=== PATIENT | male | born 1945 | race Caucasian/White ===

== ENCOUNTER 2016-07-31 10:43 | Inpatient (IN) | payer MEDICARE, OTHER ==
[2016-07-31] VITALS (8 sets, daily range): BP systolic 99–142; BP diastolic 57–79; PULSE 42–78; RESP 14–19; TEMP 97.8–98.1; O2SAT 94–99
[~2016-07-31] VITALS: Ht 172.7 cm; Wt 76.0 kg
[~2016-07-31 10:43] MED LIST: AMLO5 PO; BUSP10 PO; CARB25TA PO; DIVA250ER PO; LISI20 PO; OXYB5TAB PO; PANT20 PO; PROS5TAB2 PO; SERO100T PO; TRAZ100 PO
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
[2016-07-31] MEDS ORDERED: SODIUM CHLORIDE 0.9% FLUSH 5 ML FLUSH IVF PRN (11:00)
[2016-07-31 11:17] LABS: AUTOMATED NEUTROPHIL # 4.1 TH/MM3 (1.8-7.7); BASOPHIL # 0.1 TH/MM3 (0-0.2); BASOPHIL % 0.8 % (0.0-2.0); EOSINOPHIL # 0.2 TH/MM3 (0-0.4); EOSINOPHIL % 1.8 % (0.0-4.0); HEMATOCRIT 40.4 % (39.0-51.0); HEMO FLAGS DIFF FINAL; LYMPH % 46.9 % (9.0-44.0); LYMPHOCYTE # 4.6 TH/MM3 (1.0-4.8); MEAN CORPUSCULAR HEMOGLOBIN 29.8 PG (27.0-34.0); MEAN CORPUSCULAR HGB CONC 33.5 % (32.0-36.0); MONO % 8.1 % (0.0-8.0); NEUT % 42.4 % (16.0-70.0); PLATELET COUNT 225 TH/MM3 (150-450); RED BLOOD COUNT 4.54 MIL/MM3 (4.50-5.90); RED CELL DISTRIBUTION WIDTH 13.5 % (11.6-17.2); WHITE BLOOD COUNT 9.8 TH/MM3 (4.0-11.0)
[2016-07-31 11:27] LABS: APTT (PATIENT) 24.3 SEC (24.3-30.1); PROTHROMBIN TIME - PATIENT 10.5 SEC (9.8-11.6)
--- NOTE | 2016-07-31 11:28 | RADRPT ---
EXAM DATE/TIME: 07/31/2016 10:47 [facility] COMPARISON: CHEST SINGLE AP, July 17, 2013, 15:05. INDICATIONS : Short of breath. MEDICAL HISTORY : None. SURGICAL HISTORY : None. ENCOUNTER: Initial ACUITY: 1 day PAIN SCORE: 2/10 LOCATION: Bilateral chest FINDINGS: A single view of the chest demonstrates the lungs to be symmetrically aerated without evidence of mas s, infiltrate or effusion. The cardiomediastinal contours are unremarkable. Osseous structures are intact. CONCLUSION: No acute disease. Elliot Bhagat MD FACR on July 31, 2016 at 11:27 Board Certified Radiologist. This report was verified electronically.
[2016-07-31 11:32] LABS: ALT (GPT) 11 U/L (12-78); ANION GAP 8 MEQ/L (5-15); AST (GOT) 7 U/L (15-37); BICARBONATE 26.2 MEQ/L (21.0-32.0); BLOOD UREA NITROGEN 8 MG/DL (7-18); CHLORIDE 107 MEQ/L (98-107); GLOMERULAR FILTRATION RATE 78 ML/MIN (>89); POTASSIUM 3.8 MEQ/L (3.5-5.1); SODIUM (NA) 141 MEQ/L (136-145)
[2016-07-31 11:36] LABS: ALKALINE PHOSPHATASE 44 U/L (45-117); TOTAL BILIRUBIN ADULT 0.5 MG/DL (0.2-1.0)
[2016-07-31] MEDS ORDERED: TRAZ50TA12 PO (11:40)
[2016-07-31] MEDS ORDERED: BENZ0.5T PO (11:40)
[2016-07-31] MEDS ORDERED: MEMA28CA PO (11:40)
[2016-07-31] MEDS ORDERED: AMLO5TAB2 PO (11:40)
[2016-07-31] MEDS ORDERED: QUET300XR PO (11:40)
[2016-07-31] MEDS ORDERED: LISI-515 PO (11:40)
[2016-07-31] MEDS ORDERED: MAPA325T PO (11:43)
[2016-07-31] MEDS ORDERED: SINE25TA PO (11:43)
--- NOTE | 2016-07-31 11:46 | RADRPT ---
EXAM DATE/TIME: 07/31/2016 11:13 [facility] COMPARISON: CT BRAIN W/O CONTRAST, July 05, 2012, 12:25. INDICATIONS: Altered mental status. RADIATION DOSE: 39.88 CTDIvol (mGy) MEDICAL HISTORY: Dementia. Seizures. Cerebrovascular disease. Hypertension. SURGICAL HISTORY: None. ENCOUNTER: Initial ACUITY: 1 day PAIN SCALE: Non-responsive LOCATION: Cranial TECHNIQUE: Multiple contiguous axial images were obtained of the head. Using automated exposure control and adj ustment of the mA and/or kV according to patient size, radiation dose was kept as low as reasonably a chievable to obtain optimal diagnostic quality images. 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 A second old infarct is seen in the rig ht parietal occipital region. Moderate periventricular white matter changes are noted. There is no parenchymal hemorrhage . I see no definite acute infarction. There are no extraaxial fluid collections appreciated. CONCLUSION: Significant ischemic changes, negative for an acute process. Elliot Bhagat MD FACR on July 31, 2016 at 11:34 Board Certified Radiologist. This report was verified electronically.
[2016-07-31] MEDS ORDERED: OXYB5TAB PO (11:47)
[2016-07-31] MEDS ORDERED: FLEE5TAB PO (11:47)
[2016-07-31] MEDS ORDERED: DIVA250ER PO (11:47)
[2016-07-31] MEDS ORDERED: DEPA500T3 PO (11:47)
[2016-07-31] MEDS ORDERED: OMEP20CA2 PO (11:50)
[2016-07-31] MEDS ORDERED: PROS5TAB PO (11:50)
[2016-07-31] MEDS ORDERED: ATOR10TA15 PO (11:50)
[2016-07-31 12:06] LABS: BLOOD, URINE NEG (NEG); GLUCOSE,URINE NEG (NEG); KETONE, URINE NEG (NEG); NITRITE,URINE NEG (NEG); URINE COLOR LIGHT-YELLOW (YELLW/STRAW)
[2016-07-31 12:11] LABS: COMMENT (UR) CATH-CULT NOT IND; CULTURE IF INDICATED CATH CULTURE NOT IND
[2016-07-31] MEDS ORDERED: BISACODYL EC 5 MG TABEC PO PRN (13:30)
[2016-07-31] MEDS ORDERED: PILL SPLITTER OTHER PRN (14:00)
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
[2016-07-31] MEDS: SODIUM CHLOR 0.9% 1000 ML INJ 1,000 ML IV SCH (15:14)
[2016-07-31 16:02] LABS: AMPHETAMINE, URINE NEG (NEG); BARBITURATES, URINE NEG (NEG); COCAINE, URINE NEG (NEG)
[2016-07-31] MEDS: CARBIDOPA/LEVODOPA 25 MG/100 MG TAB PO SCH ×2 (18:00→23:34)
--- NOTE | 2016-07-31 19:02 | HHI.PR ---
Objective Objective Results - Vital Signs Date Time Temp Pulse Resp B/P Pulse Ox O2 Delivery O2 Flow Rate FiO2 07/31/16 18:50 98.1 50 18 140/79 98 07/31/16 17:47 55 14 142/77 96 07/31/16 14:57 49 14 112/70 99 Nasal Cannula 2 07/31/16 12:52 94 Nasal Cannula 2 07/31/16 12:17 57 14 99/57 94 07/31/16 10:52 98.1 63 19 137/77 94 Result Diagram: 07/31/16 1100 07/31/16 1100 Imaging Last Impressions Chest X-Ray 07/31/16 1047 Signed Impressions: Service Date/Time: Sunday, July 31, 2016 10:47 - CONCLUSION: No acute disease. Elliot Bhagat MD FACR Other Results Laboratory Tests Test 07/31/16 07/31/16 07/31/16 07/31/16 11:00 11:30 11:35 15:15 White Blood Count 9.8 Red Blood Count 4.54 Hemoglobin 13.6 Hematocrit 40.4 Mean Corpuscular Volume 89.0 Mean Corpuscular Hemoglobin 29.8 Mean Corpuscular Hemoglobin 33.5 Concent Red Cell Distribution Width 13.5 Platelet Count 225 Mean Platelet Volume 9.6 Neutrophils (%) (Auto) 42.4 Lymphocytes (%) (Auto) 46.9 Monocytes (%) (Auto) 8.1 Eosinophils (%) (Auto) 1.8 Basophils (%) (Auto) 0.8 Neutrophils # (Auto) 4.1 Lymphocytes # (Auto) 4.6 Monocytes # (Auto) 0.8 Eosinophils # (Auto) 0.2 Basophils # (Auto) 0.1 CBC Comment DIFF FINAL Differential Comment Prothrombin Time 10.5 Prothromb Time International 1.0 Ratio Activated Partial 24.3 Thromboplast Time Sodium Level 141 Potassium Level 3.8 Chloride Level 107 Carbon Dioxide Level 26.2 Anion Gap 8 Blood Urea Nitrogen 8 Creatinine 0.96 Estimat Glomerular Filtration 78 Rate Random Glucose 89 Calcium Level 8.1 Total Bilirubin 0.5 Aspartate Amino Transf 7 (AST/SGOT) Alanine Aminotransferase 11 (ALT/SGPT) Alkaline Phosphatase 44 Troponin I LESS THAN 0.02 LESS THAN 0.02 Total Protein 6.4 Albumin 3.2 Vitamin B12 Level 261 Valproic Acid (Depakene) Level 29 Ammonia 24 Urine Color LIGHT-YELLOW Urine Turbidity CLEAR Urine pH 6.0 Urine Specific [place] 1.002 Urine Protein NEG Urine Glucose (UA) NEG Urine Ketones NEG Urine Occult Blood NEG Urine Nitrite NEG Urine Bilirubin NEG Urine Urobilinogen LESS THAN 2.0 Urine Leukocyte Esterase NEG Microscopic Urinalysis Comment CATH-CULT NOT IND Urine Opiates Screen NEG Urine Barbiturates Screen NEG Urine Amphetamines Screen NEG Urine Benzodiazepines Screen NEG Urine Cocaine Screen NEG Urine Cannabinoids Screen NEG Thyroid Stimulating Hormone 2.730 3rd Gen Physical Exam Physical Exam pt is seen & Examined d/w PT d/w RN d/w Mervat see Orders see H&P will f/u Jocelyne Jerez MD Jul 31, 2016 19:02
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
[2016-07-31] MEDS: QUEtiapine FUMARATE 100 MG TAB PO SCH (23:31)
[2016-07-31] MEDS: DIVALPROEX SODIUM E.R. 250 MG TAB PO SCH (23:33)
[2016-07-31] MEDS: traZODone HCL 50 MG TAB PO SCH (23:33)
[2016-07-31] MEDS: ATORVASTATIN 10 MG TAB PO SCH (23:33)
[2016-07-31] MEDS: DIVALPROEX SODIUM E.R. 500 MG TAB PO SCH (23:33)
[2016-07-31] MEDS: LISINOPRIL 20 MG TAB PO SCH (23:34)
[2016-07-31] MEDS: BENZTROPINE MESYLATE 1 MG TAB PO SCH (23:44)
[2016-08-01] VITALS (11 sets, daily range): BP systolic 79–151; BP diastolic 53–88; PULSE 67–117; RESP 15–18; TEMP 98–99.3; O2SAT 96–99
--- NOTE | 2016-08-01 00:38 | RADRPT ---
EXAM DATE/TIME: 07/31/2016 21:14 [facility] COMPARISON: No previous studies available for comparison. INDICATIONS : Transient ischemic attack. MEDICAL HISTORY : Hypertension. Seizures. Head trauma. Asthma. Dyspnea. Schizophrenia. Bipolar disorder. Anxiety. SURGICAL HISTORY : Brain surgery. Cataract surgery. Blood transfusions. ENCOUNTER: Initial ACUITY: 1 day PAIN SCORE: 0/10 LOCATION: Bilateral neck PEAK SYSTOLIC VELOCITIES (cm/sec): ICA/CCA RATIO: Right: 0.6 Left: 1.0 ICA: Right: 55 Left: 78 CCA: Right: 86 Left: 75 ECA: Right: 78 Left: 60 VERTEBRAL: Right: 33 antegrade Left: 44 antegrade Elevated flow velocities and ICA/CCA ratios have been found to correlate with increased degrees of vessel stenosis, calculated as percentage of diameter relative to a normal segment of distal ICA/CCA FINDINGS: RIGHT CAROTID: No significant stenosis is visualized. The waveforms are within normal limits. LEFT CAROTID: No significant stenosis is visualized. The waveforms are within normal limits. VERTEBRAL ARTERIES: Antegrade flow is seen in both vertebral arteries. MISCELLANEOUS: None. CONCLUSION: No evidence of flow-limiting carotid stenosis. Osmar Welch MD on August 01, 2016 at 0:36 Board Certified Radiologist. This report was verified electronically.
[2016-08-01] MEDS: SODIUM CHLOR 0.9% 1000 ML INJ 1,000 ML IV SCH ×2 (03:19→14:35)
--- NOTE | 2016-08-01 08:42 | HHI.PR ---
Subjective History of Present Illness feels well No CP or SOB No cough or sputum No fever or chills No N/V NO headache ambulated w PT in good spirits offers no other c/o Vitals/Results Intake & Output 07/31/16 07/31/16 08/01/16 15:00 23:00 07:00 Output Total 1200 ml Balance -1200 ml Output Urine Total 1200 ml Vital Signs Vital Signs Date Time Temp Pulse Resp B/P Pulse Ox O2 Delivery O2 Flow Rate FiO2 08/01/16 06:17 78 08/01/16 05:31 98.0 72 18 133/62 98 08/01/16 01:37 98.2 67 18 118/68 97 07/31/16 21:05 97.8 42 18 110/57 98 07/31/16 20:00 98.0 78 18 137/72 97 07/31/16 18:50 98.1 50 18 140/79 98 07/31/16 17:47 55 14 142/77 96 07/31/16 14:57 49 14 112/70 99 Nasal Cannula 2 07/31/16 12:52 94 Nasal Cannula 2 07/31/16 12:17 57 14 99/57 94 07/31/16 10:52 98.1 63 19 137/77 94 CBC/BMP: 07/31/16 1100 07/31/16 1100 Lab Results Laboratory Tests Test 07/31/16 07/31/16 07/31/16 07/31/16 11:00 11:30 11:35 15:15 White Blood Count 9.8 TH/MM3 Red Blood Count 4.54 MIL/MM3 Hemoglobin 13.6 GM/DL Hematocrit 40.4 % Mean Corpuscular Volume 89.0 FL Mean Corpuscular Hemoglobin 29.8 PG Mean Corpuscular Hemoglobin 33.5 % Concent Red Cell Distribution Width 13.5 % Platelet Count 225 TH/MM3 Mean Platelet Volume 9.6 FL Neutrophils (%) (Auto) 42.4 % Lymphocytes (%) (Auto) 46.9 % Monocytes (%) (Auto) 8.1 % Eosinophils (%) (Auto) 1.8 % Basophils (%) (Auto) 0.8 % Neutrophils # (Auto) 4.1 TH/MM3 Lymphocytes # (Auto) 4.6 TH/MM3 Monocytes # (Auto) 0.8 TH/MM3 Eosinophils # (Auto) 0.2 TH/MM3 Basophils # (Auto) 0.1 TH/MM3 CBC Comment DIFF FINAL Differential Comment Prothrombin Time 10.5 SEC Prothromb Time International 1.0 RATIO Ratio Activated Partial 24.3 SEC Thromboplast Time Sodium Level 141 MEQ/L Potassium Level 3.8 MEQ/L Chloride Level 107 MEQ/L Carbon Dioxide Level 26.2 MEQ/L Anion Gap 8 MEQ/L Blood Urea Nitrogen 8 MG/DL Creatinine 0.96 MG/DL Estimat Glomerular Filtration 78 ML/MIN Rate Random Glucose 89 MG/DL Calcium Level 8.1 MG/DL Total Bilirubin 0.5 MG/DL Aspartate Amino Transf 7 U/L (AST/SGOT) Alanine Aminotransferase 11 U/L (ALT/SGPT) Alkaline Phosphatase 44 U/L Troponin I LESS THAN 0.02 LESS THAN 0.02 NG/ML NG/ML Total Protein 6.4 GM/DL Albumin 3.2 GM/DL Vitamin B12 Level 261 PG/ML Valproic Acid (Depakene) Level 29 MCG/ML Ammonia 24 MCMOL/L Urine Color LIGHT-YELLOW Urine Turbidity CLEAR Urine pH 6.0 Urine Specific [place] 1.002 Urine Protein NEG mg/dL Urine Glucose (UA) NEG mg/dL Urine Ketones NEG mg/dL Urine Occult Blood NEG Urine Nitrite NEG Urine Bilirubin NEG Urine Urobilinogen LESS THAN 2.0 MG/DL Urine Leukocyte Esterase NEG Microscopic Urinalysis Comment CATH-CULT NOT IND Urine Opiates Screen NEG Urine Barbiturates Screen NEG Urine Amphetamines Screen NEG Urine Benzodiazepines Screen NEG Urine Cocaine Screen NEG Urine Cannabinoids Screen NEG Thyroid Stimulating Hormone 2.730 uIU/ML 3rd Gen Physical Exam General General Appearance: No Acute Distress, Comfortable Eyes Eye Exam: Pupils Equal, Sclera White Ears & Nose Ears & Nose Exam: Nasal Mucosa [place] Throat Throat Exam: Oral Mucosa [place] & Moist Neck Neck Exam: Neck Supple, Trachea Midline Pulmonary Resp Exam: Clear Bilaterally, Breath Sounds Equal, No Distress Cardiology CV Exam: Regular, Normal Sinus Rhythm Gastrointestinal/Abdomen GI Exam: Soft, Non-Tender, Bowel Sounds Present Integumentary Skin Exam: Warm, Dry Extremeties Extremities Exam: No Edema, Pedal Pulses Palpable Neurologic Neuro Exam: Alert, Awake, Oriented, Speech Clear, Moving All Extremities Neuro Remarks Resting tremors pierre involving upper ext Psychiatric Psych Exam: Appropriate Responses PUD Prophylasis PUD Prophylaxis: Protonix Assessment/Plan Assessment/Plan Assessment and Plan Problem List: (1) S/P Altered mental status SYNCOPE VS SEIZURE (2) Bradycardia, apparently Sinus Bradycardia , improved (3) Parkinsonism (4) Schizophrenia (5) Hypertension (6) Dementia following traumatic brain injury (7) Seizure disorder (8) History of CVA (cerebrovascular accident) Assessment and Plan 71-year-old male with history of schizophrenia, Parkinson's, dementia, seizure disorder. Brought in for altered mental status, was found bradycardic given Atropine by EVAC . -Patient was put on continuous cardiac telemetry, bradycardia resolved -Start IV fluids, normal saline at 84 an hour -cardiology consult awaited -Echo [p] -TSH Normal - trop Neg ? Hx Seizure disorder Neuro checks Seizure precautions EEG neg for sz spikes -Continue depakote CT finding of old strokes -Echo ordered -ASA 82 mg po daily - cont statin -lipid profile not done -Carotid US -TSH, B12 low normal -PT/ST Parkinson's -Resume home meds/ sinemet History of schizoaffective disorder Continue home meds, seroquel/cogentin Dementia -Continue to monitor, resume home medications Hypertension, stable Continue home medications, CCB/MAX-I Home medications reviewed, initiated as indicated SCDs for DVT prophylaxis ss for d.c planning , d/c back to NH facility if/when ok w card d/w RN d/w SW JAIL form completed see MRS total time spent > 38 min Jocelyne Jerez MD Aug 01, 2016 08:42
[2016-08-01] MEDS: MEMANTINE 28 MG PO SCH (09:00)
[2016-08-01] MEDS ORDERED: ASPI81TA11 PO (09:54)
[2016-08-01] MEDS: FINASTERIDE 5 MG TAB PO SCH (10:11)
[2016-08-01] MEDS: BENZTROPINE MESYLATE 1 MG TAB PO SCH ×2 (10:12→21:31)
[2016-08-01] MEDS: ASPIRIN EC 81 MG TABEC PO SCH (10:12)
[2016-08-01] MEDS: CARBIDOPA/LEVODOPA 25 MG/100 MG TAB PO SCH ×4 (10:12→21:32)
[2016-08-01] MEDS: amLODIPine BESYLATE 5 MG TAB PO SCH (10:12)
[2016-08-01] MEDS: QUEtiapine FUMARATE 100 MG TAB PO SCH ×2 (10:12→21:29)
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
[2016-08-01] MEDS ORDERED: SODIUM CHLORID 0.9% 500 ML INJ 500 ML IV ONE (13:30)
[2016-08-01 14:04] LABS: AUTOMATED NEUTROPHIL # 10.1 TH/MM3 (1.8-7.7); BASOPHIL # 0.1 TH/MM3 (0-0.2); BASOPHIL % 0.7 % (0.0-2.0); EOSINOPHIL # 0.1 TH/MM3 (0-0.4); EOSINOPHIL % 0.9 % (0.0-4.0); HEMATOCRIT 37.8 % (39.0-51.0); HEMO FLAGS DIFF FINAL; LYMPH % 17.1 % (9.0-44.0); LYMPHOCYTE # 2.3 TH/MM3 (1.0-4.8); MEAN CELL VOLUME 87.5 FL (80.0-100.0); MEAN CORPUSCULAR HEMOGLOBIN 29.4 PG (27.0-34.0); MEAN CORPUSCULAR HGB CONC 33.6 % (32.0-36.0); MONO % 7.8 % (0.0-8.0); NEUT % 73.5 % (16.0-70.0); PLATELET COUNT 185 TH/MM3 (150-450); RED BLOOD COUNT 4.32 MIL/MM3 (4.50-5.90); RED CELL DISTRIBUTION WIDTH 13.2 % (11.6-17.2); WHITE BLOOD COUNT 13.7 TH/MM3 (4.0-11.0)
--- NOTE | 2016-08-01 16:33 | EC ---
Study Study Date:08/01/2016 STUDY CONCLUSIONS SUMMARY - Procedure narrative: Image quality was fair. The study was technically limited due to poor acoustic window availability. - Left ventricle: Systolic function was probably normal. Views of the left ventricle are limited, but overall the ejection fraction is most likely 55-60% If LV function is below 40, please consider prescribing an ACEI or ARB or document rationale for non-use. PROCEDURE DATA STUDY STATUS: Elective. Procedure: Transthoracic echocardiography. Image quality was fair. The study was technically limited due to poor acoustic window availability. Scanning was performed from the parasternal and apical acoustic windows. Study completion: The patient tolerated the procedure well. Transthoracic echocardiography. M-mode, complete 2D, complete spectral Doppler, and color Doppler. Patient status: Inpatient. CARDIAC ANATOMY LEFT VENTRICLE: Systolic function was probably normal. Views of the left ventricle are limited, but overall the ejection fraction is most likely 55-60% Images were inadequate for LV wall motion assessment. AORTIC VALVE: The valve appears to be grossly normal. Doppler: There was no stenosis. No significant regurgitation. MITRAL VALVE: The valve appears to be grossly normal. Normal thickness leaflets, . Doppler: There was no evidence for stenosis. Trace regurgitation. Peak gradient: 3mm Hg (D). LEFT ATRIUM: The atrium was normal in size. PULMONIC VALVE: Not well visualized. TRICUSPID VALVE: The valve appears to be grossly normal. Doppler: There was no evidence for stenosis. Trace regurgitation. BASIC MEASUREMENTS ADULT Normal Left ventricle LV internal dimension, ED, chordal level, *35.6 mm 43-52 PLAX LV posterior wall thickness, ED 6.44 mm IVS/LVPW ratio, ED *1.3 <1.3 Ventricular septum Septal thickness, ED 8.37 mm Aortic valve Leaflet separation 23 mm 15-26 Left atrium Anterior-posterior dimension 33 mm Right ventricle RV internal dimension, ED, PLAX 25.6 mm 19-38 BASIC MEASUREMENTS ADULT Normal Aortic valve Leaflet separation 23 mm 15-26 Aorta Root diameter, ED 34 mm 20-37 DOPPLER MEASUREMENTS ADULT Normal Mitral valve Peak E-wave velocity 89.3 cm/s Peak A-wave velocity 41 cm/s Peak gradient, D 3 mm Hg Peak E/A ratio 2.2 Tricuspid valve Regurgitant peak velocity 130 cm/s Peak RV-RA gradient, S 7 mm Hg Maximal regurgitant velocity 130 cm/s LEGEND: Mean values are shown as u=mean value. Asterisk (*) kruse values outside specified normal range. Prepared and signed by Olegario Keith [id number]
--- NOTE | 2016-08-01 21:25 | EKG ---
Date Performed: 07/31/2016 Time Performed: 11:55:36 PTAGE: 71 years EKG: SINUS BRADYCARDIA BORDERLINE ECG PREVIOUS TRACING : 07/17/2013 15.12 DOCTOR: Fabrice Aquino Interpretating Date/Time 08/01/2016 21:12:36
[2016-08-01] MEDS: traZODone HCL 50 MG TAB PO SCH (21:29)
[2016-08-01] MEDS: DIVALPROEX SODIUM E.R. 250 MG TAB PO SCH (21:31)
[2016-08-01] MEDS: DIVALPROEX SODIUM E.R. 500 MG TAB PO SCH (21:31)
[2016-08-01] MEDS: LISINOPRIL 20 MG TAB PO SCH (21:32)
[2016-08-01] MEDS: ATORVASTATIN 10 MG TAB PO SCH (21:32)
[2016-08-02] VITALS (7 sets, daily range): BP systolic 108–132; BP diastolic 59–73; PULSE 74–98; RESP 17–21; TEMP 98–100.8; O2SAT 94–97
[2016-08-02] MEDS: SODIUM CHLOR 0.9% 1000 ML INJ 1,000 ML IV SCH ×3 (02:30→22:17)
[2016-08-02] MEDS: MEMANTINE 28 MG PO SCH (09:00)
[2016-08-02] MEDS: ASPIRIN EC 81 MG TABEC PO SCH (09:59)
[2016-08-02] MEDS: amLODIPine BESYLATE 5 MG TAB PO SCH (09:59)
[2016-08-02] MEDS: QUEtiapine FUMARATE 100 MG TAB PO SCH ×2 (09:59→22:16)
[2016-08-02] MEDS: BENZTROPINE MESYLATE 1 MG TAB PO SCH ×2 (09:59→22:14)
[2016-08-02] MEDS: CARBIDOPA/LEVODOPA 25 MG/100 MG TAB PO SCH ×4 (10:00→22:15)
[2016-08-02] MEDS: FINASTERIDE 5 MG TAB PO SCH (10:00)
--- NOTE | 2016-08-02 10:01 | HHI.PR ---
Subjective History of Present Illness pt became hypotensive yesterday , treated w fluid bolus BP improved , d/c withheld had low grade temp earlier today , BP is better I am OK No cough or sputum No sore throat No N/V NO headache No body ache NO dysuria No Diarrhea ambulated w PT in good spirits offers no other c/o Vitals/Results Vital Signs Vital Signs Date Time Temp Pulse Resp B/P Pulse Ox O2 Delivery O2 Flow Rate FiO2 08/02/16 08:00 100.8 98 18 112/65 94 08/02/16 04:00 98.2 74 18 132/68 97 08/02/16 00:31 98.0 87 21 121/73 97 08/01/16 21:15 105 08/01/16 20:13 98.0 87 18 142/87 97 08/01/16 15:55 99.3 117 18 150/78 98 08/01/16 13:50 114/73 08/01/16 13:30 102/68 08/01/16 13:20 78 79/53 87/60 08/01/16 12:00 98.1 98 15 99 CBC/BMP: 08/01/16 1330 07/31/16 1100 Lab Results Laboratory Tests Test 08/01/16 08/01/16 13:30 14:11 White Blood Count 13.7 TH/MM3 Red Blood Count 4.32 MIL/MM3 Hemoglobin 12.7 GM/DL Hematocrit 37.8 % Mean Corpuscular Volume 87.5 FL Mean Corpuscular Hemoglobin 29.4 PG Mean Corpuscular Hemoglobin 33.6 % Concent Red Cell Distribution Width 13.2 % Platelet Count 185 TH/MM3 Mean Platelet Volume 10.0 FL Neutrophils (%) (Auto) 73.5 % Lymphocytes (%) (Auto) 17.1 % Monocytes (%) (Auto) 7.8 % Eosinophils (%) (Auto) 0.9 % Basophils (%) (Auto) 0.7 % Neutrophils # (Auto) 10.1 TH/MM3 Lymphocytes # (Auto) 2.3 TH/MM3 Monocytes # (Auto) 1.1 TH/MM3 Eosinophils # (Auto) 0.1 TH/MM3 Basophils # (Auto) 0.1 TH/MM3 CBC Comment DIFF FINAL Differential Comment Random Cortisol 11.4 MCG/DL Physical Exam General General Appearance: No Acute Distress, Comfortable Eyes Eye Exam: Pupils Equal, Sclera White Ears & Nose Ears & Nose Exam: Nasal Mucosa [place] Throat Throat Exam: Oral Mucosa [place] & Moist Neck Neck Exam: Neck Supple, Trachea Midline Pulmonary Resp Exam: Clear Bilaterally, Breath Sounds Equal, No Distress Cardiology CV Exam: Regular, Normal Sinus Rhythm Gastrointestinal/Abdomen GI Exam: Soft, Non-Tender, Bowel Sounds Present Integumentary Skin Exam: Warm, Dry Extremeties Extremities Exam: No Edema, Pedal Pulses Palpable Neurologic Neuro Exam: Alert, Awake, Oriented, Speech Clear, Moving All Extremities Neuro Remarks Resting tremors pierre involving upper ext Psychiatric Psych Exam: Appropriate Responses PUD Prophylasis PUD Prophylaxis: Protonix Assessment/Plan Assessment/Plan Assessment and Plan Problem List: (1) S/P Altered mental status SYNCOPE VS SEIZURE (2) Bradycardia, apparently Sinus Bradycardia , improved (3) Parkinsonism (4) Schizophrenia (5) Hypertension (6) Dementia following traumatic brain injury (7) Seizure disorder (8) History of CVA (cerebrovascular accident) Assessment and Plan 71-year-old male with history of schizophrenia, Parkinson's, dementia, seizure disorder. Brought in for altered mental status, was found bradycardic given Atropine by EVAC . -Patient was put on continuous cardiac telemetry, bradycardia resolved -d/c IV fluids, -cardiology consult appreciated < No further cardiac w/u rec -Echo Noted , N L LVF -TSH Normal - trop Neg Hypotension ?? etiology , resolved H/H stable NO Obvious s/s of infection, except low grade temp today ?? etiology d/c IVF , monitor Low grade temp ? etiology Monitor repeat CBC if spike again will do sepsis w/u & start empiridc abx ? Hx Seizure disorder Neuro checks Seizure precautions EEG neg for sz spikes -Continue depakote CT finding of old strokes -Echo ordered -ASA 82 mg po daily - cont statin -lipid profile not done -Carotid US -TSH, B12 low normal -PT/ST Parkinson's -Resume home meds/ sinemet History of schizoaffective disorder Continue home meds, seroquel/cogentin Dementia -Continue to monitor, resume home medications Hypertension, stable Continue home medications, CCB/MAX-I Home medications reviewed, initiated as indicated SCDs for DVT prophylaxis ss for d.c planning , d/c back to NH facility if/when ok w card d/w RN d/w SW FATIMAH form completed see MRS total time spent > 38 min Jocelyne Jerez MD Aug 02, 2016 10:01
[2016-08-02 11:11] LABS: HEMATOCRIT 35.9 % (39.0-51.0); MEAN CELL VOLUME 87.1 FL (80.0-100.0); MEAN CORPUSCULAR HEMOGLOBIN 29.5 PG (27.0-34.0); MEAN CORPUSCULAR HGB CONC 33.8 % (32.0-36.0); PLATELET COUNT 178 TH/MM3 (150-450); RED BLOOD COUNT 4.12 MIL/MM3 (4.50-5.90); RED CELL DISTRIBUTION WIDTH 13.4 % (11.6-17.2); REVIEW FLAG FINAL; WHITE BLOOD COUNT 17.8 TH/MM3 (4.0-11.0)
[2016-08-02 12:15] LABS: WESTERGREN SEDIMENTATION RATE 21 mm/hr (0-20)
--- NOTE | 2016-08-02 16:18 | RADRPT ---
EXAM DATE/TIME: 08/02/2016 16:11 [facility] COMPARISON: CHEST SINGLE AP, July 31, 2016, 10:47. INDICATIONS : Syncope, Fever. MEDICAL HISTORY : Dementia. Seizures. Cerebrovascular disease. Hypertension. SURGICAL HISTORY : None. ENCOUNTER: Initial ACUITY: 1 day PAIN SCORE: Non-responsive. LOCATION: Bilateral chest FINDINGS: A single view of the chest demonstrates the lungs to be symmetrically aerated without evidence of mas s, infiltrate or effusion. The cardiomediastinal contours are unremarkable. Osseous structures are intact. CONCLUSION: No acute disease. Ricky Panda MD on August 02, 2016 at 16:16 Board Certified Radiologist. This report was verified electronically.
[2016-08-02] MEDS: cefTRIAXone INJ 1,000 MG in SODIUM CHLORIDE 0.9% INJ 100 ML IV SCH (22:14)
[2016-08-02] MEDS: DIVALPROEX SODIUM E.R. 500 MG TAB PO SCH (22:14)
[2016-08-02] MEDS: DIVALPROEX SODIUM E.R. 250 MG TAB PO SCH (22:15)
[2016-08-02] MEDS: LISINOPRIL 20 MG TAB PO SCH (22:15)
[2016-08-02] MEDS: ATORVASTATIN 10 MG TAB PO SCH (22:16)
[2016-08-02] MEDS: traZODone HCL 50 MG TAB PO SCH (22:16)
[2016-08-03] VITALS: BP 103/56; PULSE 85; RESP 18; TEMP 101; O2SAT 95
[2016-08-03] MEDS ORDERED: ACETAMINOPHEN 325 MG TAB PO PRN (02:45)
[2016-08-03 04:05] VITALS: BP 110/59; PULSE 83; RESP 20; TEMP 98.4; O2SAT 96
[2016-08-03 05:12] LABS: HEMATOCRIT 36.3 % (39.0-51.0); MEAN CELL VOLUME 87.4 FL (80.0-100.0); MEAN CORPUSCULAR HEMOGLOBIN 29.3 PG (27.0-34.0); MEAN CORPUSCULAR HGB CONC 33.5 % (32.0-36.0); PLATELET COUNT 189 TH/MM3 (150-450); RED BLOOD COUNT 4.15 MIL/MM3 (4.50-5.90); REVIEW FLAG FINAL; WHITE BLOOD COUNT 18.4 TH/MM3 (4.0-11.0)
[2016-08-03 08:23] VITALS: BP 142/86; PULSE 76; RESP 18; TEMP 98.9; O2SAT 18; O2SAT 94
[2016-08-03] MEDS: QUEtiapine FUMARATE 100 MG TAB PO SCH ×2 (09:00→19:39)
--- NOTE | 2016-08-03 10:29 | HHI.PR ---
Subjective History of Present Illness History of Present Illness 71 yr old white male admitted with syncope/bradycardia. Denies any dizziness or syncope this am. Day 3 BP improved , continue to monitor had low grade temp earlier today , BP is better No cough or sputum No sore throat No N/V NO headache No body ache NO dysuria , c/o No Diarrhea offers no other c/o quiet today. Answers with simple yes/no Hospital Day: 3 Subjective Remarks Im not dizzy today. I've had no breakfast. (Bibi Renee) Review of Systems Constitutional Constitutional: Weakness (10 point ROS done. Positives noted, generalized weakness, flat affect. Otherwise negative exam.) (Bibi Renee) Psychiatric Psychiatric Remarks flat affect and mood. (Bibi Renee) Vitals/Results Vital Signs Vital Signs Date Time Temp Pulse Resp B/P Pulse Ox O2 Delivery O2 Flow Rate FiO2 08/03/16 08:23 98.9 76 18 142/86 94 08/03/16 04:05 98.4 83 20 110/59 96 08/03/16 00:00 101.0 85 18 103/56 95 08/02/16 20:00 93 08/02/16 20:00 99.8 86 18 110/62 96 08/02/16 15:48 100.8 88 17 108/59 95 08/02/16 11:13 99.8 98 18 125/69 94 (Bibi Renee) CBC/BMP: 08/03/16 0428 07/31/16 1100 Lab Results Laboratory Tests Test 08/02/16 08/03/16 10:55 04:28 White Blood Count 17.8 TH/MM3 18.4 TH/MM3 Red Blood Count 4.12 MIL/MM3 4.15 MIL/MM3 Hemoglobin 12.1 GM/DL 12.1 GM/DL Hematocrit 35.9 % 36.3 % Mean Corpuscular Volume 87.1 FL 87.4 FL Mean Corpuscular Hemoglobin 29.5 PG 29.3 PG Mean Corpuscular Hemoglobin 33.8 % 33.5 % Concent Red Cell Distribution Width 13.4 % 13.0 % Platelet Count 178 TH/MM3 189 TH/MM3 Mean Platelet Volume 9.4 FL 10.1 FL Erythrocyte Sedimentation Rate 21 mm/hr C-Reactive Protein 9.11 MG/DL Microbiology Microbiology 08/02/16 Aerobic Blood Culture, Received Pending 08/02/16 Anaerobic Blood Culture, Received Pending 08/02/16 Aerobic Blood Culture, Received Pending 08/02/16 Anaerobic Blood Culture, Received Pending 08/02/16 Influenza Types A,B Antigen (KHANG) - Final, Complete NEGATIVE FOR FLU A AND B ANTIGEN.... 08/03/16 Aerobic Blood Culture, Received Pending 08/03/16 Anaerobic Blood Culture, Received Pending 08/03/16 Aerobic Blood Culture, Received Pending 08/03/16 Anaerobic Blood Culture, Received Pending Imaging Remarks Last Impressions Chest X-Ray 08/02/16 0000 Signed Impressions: Service Date/Time: Tuesday, August 02, 2016 16:11 - CONCLUSION: No acute disease. Ricky Panda MD Head CT 07/31/16 1047 Signed Impressions: Service Date/Time: Sunday, July 31, 2016 11:13 - CONCLUSION: Significant ischemic changes, negative for an acute process. Elliot Bhagat MD FACR Carotid Artery Ultrasound 07/31/16 0000 Signed Impressions: Service Date/Time: Sunday, July 31, 2016 21:14 - CONCLUSION: No evidence of flow-limiting carotid stenosis. Osmar Welch MD Current Medications Active Medications Acetaminophen (Tylenol) 650 mg Q6H PRN PO Last administered on 08/03/16 02:41 ; Admin Dose 650 MG; Start 08/03/16 at 02:45 Ceftriaxone Sodium/Sodium Chloride (Rocephin Inj/NS Inj) 100 ml @ 200 mls/hr Q24H IV Last administered on 08/02/16 22:14; Admin Dose 200 MLS/HR; Start 08/02 at 20:00 (Bibi Renee) Physical Exam General General Appearance: No Acute Distress (Bibi Renee) Eyes Eye Exam: Pupils Equal, Sclera White (Bibi Renee) Ears & Nose Ears & Nose Exam: Nasal Mucosa [place] (Bibi ReneeP) Throat Throat Exam: Oral Mucosa [place] & Moist (Bibi ReneeP) Neck Neck Exam: Neck Supple, Trachea Midline (Víctor,Bibi M. [employer]IMAL SHELTER MANAGER) Pulmonary Resp Exam: Clear Bilaterally, Breath Sounds Equal, No Distress ([place],Susan M. ANIMAL SHELTER MANAGER) Cardiology CV Exam: Regular, Normal Sinus Rhythm (Víctor,Susan M. [employer]IMAL SHELTER MANAGER) Gastrointestinal/Abdomen GI Exam: Soft, Non-Tender, Bowel Sounds Present (Víctor,Bibi M. ANIMAL SHELTER MANAGER) Genitourinary Remarks diaper on (BeechgroveBibi M. ANIMAL SHELTER MANAGER) Musculoskeletal MS Remarks hands tremor bilaterally ([place],Susan M. ANIMAL SHELTER MANAGER) Integumentary Skin Exam: Warm, Dry (BeechgroveBibi M. ANIMAL SHELTER MANAGER) Extremeties Extremities Exam: No Edema, Pedal Pulses Palpable (Víctor,Susan M. [employer]IMAL SHELTER MANAGER) Neurologic Neuro Exam: Alert, Awake, Oriented, Speech Clear, Moving All Extremities Neuro Remarks Drowsy but responds to verbal stimuli with yes or no. If used to open mouth or eyes for exam (Bibi Renee M. ANIMAL SHELTER MANAGER) Psychiatric Psych Exam: Appropriate Responses (Bibi Renee M. ANIMAL SHELTER MANAGER) PUD Prophylasis PUD Prophylaxis: Protonix (Víctor,Susan M. [employer]IM[employer] SHELTER MANAGER) Assessment/Plan Problem List: (1) Hypertension Assessment/Plan Assessment and Plan Problem List: (1) S/P Altered mental status SYNCOPE VS SEIZURE (2) Bradycardia, apparently Sinus Bradycardia , improved (3) Parkinsonism (4) Schizophrenia (5) Hypertension (6) Dementia following traumatic brain injury (7) Seizure disorder (8) History of CVA (cerebrovascular accident) Assessment and Plan 71-year-old male with history of schizophrenia, Parkinson's, dementia, seizure disorder. Brought in for altered mental status, was found bradycardic given Atropine by EVAC . -Patient was put on continuous cardiac telemetry, bradycardia resolved , Regular rhythm this am in the 60-70s IV fluids, at 84cc /hr -cardiology consult appreciated < No further cardiac w/u rec -Echo Noted , N L LVF -TSH Normal - trop Neg Hypotension ?? etiology , resolved , possible volume depleted. H/H stable NO Obvious s/s of infection, except low grade temp today ?? etiology , monitor Low grade temp ? etiology Monitor repeat CBC, WBC ct. still has mild elevation. On antibiotic therapy. ? Hx Seizure disorder Neuro checks Seizure precautions EEG neg for sz spikes -Continue depakote CT finding of old strokes -Echo ordered -ASA 82 mg po daily - cont statin -lipid profile not done -Carotid US -TSH, B12 low normal -PT/ST Parkinson's -Resume home meds/ sinemet . Hand tremors noted. History of schizoaffective disorder Continue home meds, seroquel/cogentin Dementia -Continue to monitor, resume home medications Hypertension, stable Continue home medications, CCB/MAX-I Home medications reviewed, initiated as indicated SCDs for DVT prophylaxis ss for d.c planning , d/c back to NH facility if/when ok w card d/w RN d/w SW FATIMAH form completed see MRS If stable today, may look at discharge soon. Discussed Condition with: Patient Discussed Condition Comment D/W Dr. Jerez. Patient seen on his behalf. (Bibi Renee) Assessment/Plan D/c With held d/t recurrent fever Recurrent Fever ?? etiology blood c/s [p] empiric IV abx CXR neg ID consult (Jocelyne Jerez MD) Problem Qualifiers (1) Hypertension: Qualified Code: I10 - Essential hypertension Bibi Renee Aug 03, 2016 10:29 Jocelyne Jerez MD Aug 03, 2016 15:02
[2016-08-03] MEDS: BENZTROPINE MESYLATE 1 MG TAB PO SCH ×2 (10:40→19:39)
[2016-08-03] MEDS: FINASTERIDE 5 MG TAB PO SCH (10:40)
[2016-08-03] MEDS: CARBIDOPA/LEVODOPA 25 MG/100 MG TAB PO SCH ×4 (10:40→19:39)
[2016-08-03] MEDS: amLODIPine BESYLATE 5 MG TAB PO SCH (10:41)
[2016-08-03] MEDS: ASPIRIN EC 81 MG TABEC PO SCH (10:41)
[2016-08-03] MEDS: MEMANTINE 28 MG PO SCH (10:41)
[2016-08-03] MEDS: SODIUM CHLOR 0.9% 1000 ML INJ 1,000 ML IV SCH ×2 (14:00→19:43)
[2016-08-03 16:04] VITALS: BP 118/72; PULSE 86; RESP 18; TEMP 97.8; O2SAT 96
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
[2016-08-03] MEDS: cefTRIAXone INJ 1,000 MG in SODIUM CHLORIDE 0.9% INJ 100 ML IV SCH (19:38)
[2016-08-03] MEDS: DIVALPROEX SODIUM E.R. 500 MG TAB PO SCH (19:40)
[2016-08-03] MEDS: traZODone HCL 50 MG TAB PO SCH (19:40)
[2016-08-03] MEDS: LISINOPRIL 20 MG TAB PO SCH (19:40)
[2016-08-03] MEDS: ATORVASTATIN 10 MG TAB PO SCH (19:41)
[2016-08-03] MEDS: DIVALPROEX SODIUM E.R. 250 MG TAB PO SCH (19:41)
[2016-08-03 20:00] VITALS: PULSE 88
[2016-08-03 20:08] VITALS: BP 127/75; PULSE 104; RESP 20; TEMP 97.7; O2SAT 93
[2016-08-04 00:39] VITALS: BP 123/77; PULSE 82; RESP 20; TEMP 97.4; O2SAT 93
[2016-08-04 05:02] VITALS: BP 129/81; PULSE 73; RESP 20; TEMP 97.6; O2SAT 96
[2016-08-04 07:34] VITALS: BP 135/60; PULSE 79; RESP 17; TEMP 97.7; O2SAT 93
[2016-08-04] MEDS: MEMANTINE 28 MG PO SCH (09:00)
[2016-08-04] MEDS: CARBIDOPA/LEVODOPA 25 MG/100 MG TAB PO SCH ×4 (10:09→20:34)
[2016-08-04] MEDS: amLODIPine BESYLATE 5 MG TAB PO SCH (10:09)
[2016-08-04] MEDS: QUEtiapine FUMARATE 100 MG TAB PO SCH ×2 (10:09→20:34)
[2016-08-04] MEDS: BENZTROPINE MESYLATE 1 MG TAB PO SCH ×2 (10:09→20:31)
[2016-08-04] MEDS: FINASTERIDE 5 MG TAB PO SCH (10:09)
[2016-08-04] MEDS: ASPIRIN EC 81 MG TABEC PO SCH (10:09)
--- NOTE | 2016-08-04 10:13 | HHI.PR ---
Subjective History of Present Illness feels well temp is down/ BP is stable No cough or sputum No sore throat No N/V NO headache No body ache NO dysuria No Diarrhea ambulated w PT offers no other c/o Hospital Day: 3 Review of Systems Constitutional Constitutional: Weakness (10 point ROS done. Positives noted, generalized weakness, flat affect. Otherwise negative exam.) Vitals/Results Vital Signs Vital Signs Date Time Temp Pulse Resp B/P Pulse Ox O2 Delivery O2 Flow Rate FiO2 08/04/16 07:34 97.7 79 17 135/60 93 08/04/16 05:02 97.6 73 20 129/81 96 08/04/16 00:39 97.4 82 20 123/77 93 08/03/16 20:08 97.7 104 20 127/75 93 08/03/16 20:00 88 08/03/16 16:04 97.8 86 18 118/72 96 CBC/BMP: 08/03/16 0428 07/31/16 1100 Physical Exam General General Appearance: No Acute Distress, Comfortable Eyes Eye Exam: Pupils Equal, Sclera White Ears & Nose Ears & Nose Exam: Nasal Mucosa [place] Throat Throat Exam: Oral Mucosa [place] & Moist Neck Neck Exam: Neck Supple, Trachea Midline Pulmonary Resp Exam: Clear Bilaterally, Breath Sounds Equal, No Distress Cardiology CV Exam: Regular, Normal Sinus Rhythm Gastrointestinal/Abdomen GI Exam: Soft, Non-Tender, Bowel Sounds Present Integumentary Skin Exam: Warm, Dry Extremeties Extremities Exam: No Edema, Pedal Pulses Palpable Neurologic Neuro Exam: Alert, Awake, Oriented, Speech Clear, Moving All Extremities Neuro Remarks Resting tremors pierre involving upper ext Psychiatric Psych Exam: Appropriate Responses PUD Prophylasis PUD Prophylaxis: Protonix Assessment/Plan Problem List: (1) Hypertension Assessment/Plan Recurrent Fever ?? etiology blood c/s neg so far empiric IV abx CXR neg ID consult appreciated cont supportive care ss for d/c planning / d/c when ok w ID cont supportive care will f/u Problem Qualifiers (1) Hypertension: Qualified Code: I10 - Essential hypertension Jocelyne Jerez MD Aug 04, 2016 10:13 Jocelyne Jerez MD Aug 04, 2016 10:13
[2016-08-04 10:32] LABS: HEMATOCRIT 40.3 % (39.0-51.0); MEAN CORPUSCULAR HEMOGLOBIN 29.7 PG (27.0-34.0); MEAN CORPUSCULAR HGB CONC 33.3 % (32.0-36.0); PLATELET COUNT 207 TH/MM3 (150-450); RED BLOOD COUNT 4.53 MIL/MM3 (4.50-5.90); RED CELL DISTRIBUTION WIDTH 13.6 % (11.6-17.2); REVIEW FLAG FINAL
[2016-08-04 10:53] LABS: BICARBONATE 27.7 MEQ/L (21.0-32.0); POTASSIUM 3.8 MEQ/L (3.5-5.1)
[2016-08-04] MEDS ORDERED: ENOXAPARIN SODIUM 40 MG/0.4 ML SYRINGE SQ SCH (11:00)
[2016-08-04 11:25] VITALS: BP 121/71; PULSE 90; RESP 18; TEMP 97.6; O2SAT 94
[2016-08-04] MEDS: SODIUM CHLOR 0.9% 1000 ML INJ 1,000 ML IV SCH (12:24)
[2016-08-04 15:45] VITALS: BP 117/74; PULSE 71; PULSE 73; RESP 16; TEMP 96.9; O2SAT 94
[2016-08-04 20:01] VITALS: BP 120/73; PULSE 72; RESP 20; TEMP 98.1; O2SAT 94
[2016-08-04] MEDS: DIVALPROEX SODIUM E.R. 500 MG TAB PO SCH (20:31)
[2016-08-04] MEDS: cefTRIAXone INJ 1,000 MG in SODIUM CHLORIDE 0.9% INJ 100 ML IV SCH (20:31)
[2016-08-04] MEDS: DIVALPROEX SODIUM E.R. 250 MG TAB PO SCH (20:32)
[2016-08-04] MEDS: LISINOPRIL 20 MG TAB PO SCH (20:33)
[2016-08-04] MEDS: ATORVASTATIN 10 MG TAB PO SCH (20:33)
[2016-08-04] MEDS: traZODone HCL 50 MG TAB PO SCH (20:33)
[2016-08-05 01:46] VITALS: BP 135/75; PULSE 62; RESP 20; TEMP 96.7; O2SAT 96
[2016-08-05] MEDS: SODIUM CHLOR 0.9% 1000 ML INJ 1,000 ML IV SCH (02:00)
[2016-08-05 04:20] VITALS: BP 136/68; PULSE 65; RESP 20; TEMP 98.2; O2SAT 96
[2016-08-05 06:09] LABS: HEMATOCRIT 38.5 % (39.0-51.0); MEAN CELL VOLUME 88.3 FL (80.0-100.0); MEAN CORPUSCULAR HEMOGLOBIN 29.8 PG (27.0-34.0); MEAN CORPUSCULAR HGB CONC 33.7 % (32.0-36.0); PLATELET COUNT 199 TH/MM3 (150-450); RED BLOOD COUNT 4.36 MIL/MM3 (4.50-5.90); RED CELL DISTRIBUTION WIDTH 13.3 % (11.6-17.2); REVIEW FLAG FINAL; WHITE BLOOD COUNT 7.2 TH/MM3 (4.0-11.0)
[2016-08-05 06:27] LABS: BICARBONATE 26.2 MEQ/L (21.0-32.0); POTASSIUM 3.6 MEQ/L (3.5-5.1)
--- NOTE | 2016-08-05 08:15 | HHI.PR ---
Subjective Hospital Day: 3 Subjective Remarks awakes to voice, oriented to self, year, place has no complaints no cp no sob tremors no acute changes overnight no cough tele reviewed, artifact, SR/ST Review of Systems Constitutional Constitutional: Weakness (10 point ROS done. Positives noted, generalized weakness, flat affect. Otherwise negative exam.) Constitutional Remarks 12 point ROS unreliable Vitals/Results Vital Signs Vital Signs Date Time Temp Pulse Resp B/P Pulse Ox O2 Delivery O2 Flow Rate FiO2 08/05/16 04:20 98.2 65 20 136/68 96 08/05/16 01:46 96.7 62 20 135/75 96 08/04/16 20:01 98.1 72 20 120/73 94 08/04/16 15:45 96.9 73 16 117/74 94 08/04/16 15:45 71 08/04/16 11:25 97.6 90 18 121/71 94 CBC/BMP: 08/05/16 0526 08/05/16 0526 Lab Results Laboratory Tests Test 08/04/16 08/04/16 08/05/16 08:41 09:41 05:26 Sodium Level 143 MEQ/L 141 MEQ/L Potassium Level 3.8 MEQ/L 3.6 MEQ/L Chloride Level 107 MEQ/L 105 MEQ/L Carbon Dioxide Level 27.7 MEQ/L 26.2 MEQ/L Anion Gap 8 MEQ/L 10 MEQ/L Blood Urea Nitrogen 13 MG/DL 11 MG/DL Creatinine 1.06 MG/DL 0.96 MG/DL Estimat Glomerular Filtration 69 ML/MIN 78 ML/MIN Rate Random Glucose 123 MG/DL 87 MG/DL Calcium Level 8.7 MG/DL 8.3 MG/DL White Blood Count 11.0 TH/MM3 7.2 TH/MM3 Red Blood Count 4.53 MIL/MM3 4.36 MIL/MM3 Hemoglobin 13.4 GM/DL 13.0 GM/DL Hematocrit 40.3 % 38.5 % Mean Corpuscular Volume 89.0 FL 88.3 FL Mean Corpuscular Hemoglobin 29.7 PG 29.8 PG Mean Corpuscular Hemoglobin 33.3 % 33.7 % Concent Red Cell Distribution Width 13.6 % 13.3 % Platelet Count 207 TH/MM3 199 TH/MM3 Mean Platelet Volume 10.0 FL 10.0 FL Physical Exam General General Appearance: No Acute Distress, Comfortable Eyes Eye Exam: Pupils Equal, Pupils Reactive Ears & Nose Ears & Nose Exam: Nasal Mucosa [place] Throat Throat Exam: Oral Mucosa [place] & Moist Neck Neck Exam: Neck Supple, Trachea Midline Pulmonary Resp Exam: Clear Bilaterally, Breath Sounds Equal, No Distress Cardiology CV Exam: Regular, Normal Sinus Rhythm Gastrointestinal/Abdomen GI Exam: Soft, Non-Tender, Bowel Sounds Present, Non-Distended Musculoskeletal MS Exam: Joints Intact Integumentary Skin Exam: Warm, Dry Extremeties Extremities Exam: No Edema, Pedal Pulses Palpable Neurologic Neuro Exam: Alert, Awake, Speech Clear, Moving All Extremities, No Focal Deficits VTE Prophylaxis VTE Prophylaxis Device: SCDs VTE Prophylaxis Meds: Lovenox PUD Prophylasis PUD Prophylaxis: Protonix Assessment/Plan Problem List: (1) Hypertension (2) Altered mental status (3) Bradycardia (4) Seizure disorder (5) History of CVA (cerebrovascular accident) (6) Leukocytosis (7) Schizophrenia (8) Parkinsonism (9) Dementia following traumatic brain injury Assessment/Plan 71-year-old male with history of schizophrenia, Parkinson's, dementia, seizure disorder. Brought in for altered mental status, was found bradycardic given Atropine by EVAC . -Patient was put on continuous cardiac telemetry, bradycardia resolved -d/c IV fluids, -cardiology consult appreciated < No further cardiac w/u rec -Echo Noted , N L LVF -TSH Normal - trop Neg Hypotension ?? etiology , resolved H/H stable NO Obvious s/s of infection, except low grade temp today ?? etiology stable now Low grade temp ? etiology CXR done, no acute findings on Rocephin BC negative WBC now back to normal, no fever overnight appreciate ID input ? Hx Seizure disorder Neuro checks Seizure precautions EEG neg for sz spikes -Continue depakote CT finding of old strokes -Echo ordered -ASA 82 mg po daily - cont statin -lipid profile not done -Carotid US -TSH, B12 low normal -PT/ST Parkinson's -continue home meds/ sinemet History of schizoaffective disorder Continue home meds, seroquel/cogentin Dementia -Continue to monitor, resume home medications Hypertension, stable Continue home medications, CCB/MAX-I SCDs/Lovenox for DVT prophylaxis Possible discharge today, afebrile, back to baseline F/U PCP D/W RN D/W Dr. Jerez D/W pt This patient was seen by myself and Dr. Jerez, this note is written on his behalf. Discharge Minutes: 40 Problem Qualifiers (1) Hypertension: Qualified Code: I10 - Essential hypertension (2) Altered mental status: Qualified Code: R41.82 - Altered mental status, unspecified altered mental status type (3) Leukocytosis: Qualified Code: D72.829 - Leukocytosis, unspecified type (4) Schizophrenia: Qualified Code: F20.9 - Schizophrenia, unspecified type (5) Parkinsonism: Qualified Code: G20 - Parkinsonism, unspecified Parkinsonism type Mervat Greenwood Aug 05, 2016 08:15
--- NOTE | 2016-08-05 08:16 | HHI.DCPOC ---
Discharge Care Plan Diagnosis: (1) Seizure disorder (2) Bradycardia (3) Altered mental status (4) Leukocytosis (5) Dementia following traumatic brain injury (6) Hypertension (7) Parkinsonism (8) Schizophrenia (9) History of CVA (cerebrovascular accident) Your Health Problems Are: Anxiety Difficulty with ADL Goals to Promote Your Health * To prevent worsening of your condition and complications * To maintain your health at the optimal level Directions to Meet Your Goals Take your medications as prescribed Follow your dietary instruction Follow activity as directed Keep your appointments as scheduled Take your immunizations and boosters as scheduled If your symptoms worsen call your PCP, if no PCP go to Urgent Care Center or Emergency Room Smoking is Dangerous to Your Health. Avoid second hand smoke Call the 24-hour hour crisis hotline for domestic abuse at Mervat Greenwood Aug 05, 2016 08:15
--- NOTE | 2016-08-05 08:17 | HHI.DS ---
Discharge Summary Admission Date Jul 31, 2016 at 12:27 Discharge Date: Aug 05, 2016 Admitting Diagnosis altered mental status/symptomatic bradycardia (1) Altered mental status (2) Bradycardia (3) Parkinsonism (4) Schizophrenia (5) Hypertension (6) Dementia following traumatic brain injury (7) Seizure disorder (8) History of CVA (cerebrovascular accident) (9) Leukocytosis CBC/BMP: 08/05/16 0526 08/05/16 0526 Significant Findings Laboratory Tests Test 08/02/16 08/03/16 08/04/16 08/05/16 10:55 04:28 08:41 05:26 White Blood Count 17.8 TH/MM3 18.4 TH/MM3 (4.0-11.0) (4.0-11.0) Red Blood Count 4.12 MIL/MM3 4.15 MIL/MM3 4.36 MIL/MM3 (4.50-5.90) (4.50-5.90) (4.50-5.90) Hemoglobin 12.1 GM/DL 12.1 GM/DL (13.0-17.0) (13.0-17.0) Hematocrit 35.9 % 36.3 % 38.5 % (39.0-51.0) (39.0-51.0) (39.0-51.0) Erythrocyte Sedimentation Rate 21 mm/hr (0-20) C-Reactive Protein 9.11 MG/DL (0.00-0.30) Estimat Glomerular Filtration 69 ML/MIN (>89) 78 ML/MIN (>89) Rate Random Glucose 123 MG/DL (74-106) Calcium Level 8.3 MG/DL (8.5-10.1) Imaging Last Impressions Chest X-Ray 08/02/16 0000 Signed Impressions: Service Date/Time: Tuesday, August 02, 2016 16:11 - CONCLUSION: No acute disease. Ricky Panda MD Head CT 07/31/16 1047 Signed Impressions: Service Date/Time: Sunday, July 31, 2016 11:13 - CONCLUSION: Significant ischemic changes, negative for an acute process. Elliot Bhagat MD FACR Carotid Artery Ultrasound 07/31/16 0000 Signed Impressions: Service Date/Time: Sunday, July 31, 2016 21:14 - CONCLUSION: No evidence of flow-limiting carotid stenosis. Osmar Welch MD Hospital Course This is a 71-year-old male with a resident from a local long-term, history of dementia, seizure disorder, schizophrenia, bipolar disease, Parkinson's disease, depression, hypertension. Patient was sent to the emergency room for evaluation of altered mental status, patient appeared more lethargic and disoriented than usual. When EMS arrived, they noted the patient was sleeping, heart rate was in the 40s. He received half a dose of atropine and heart rate came up to 60s. In the emergency room, patient was evaluated he was awake denied any complaints. Initial vital signs were done, temperature 98.1, pulse rate 57, respiratory rate 14, blood pressure 99 or 57, sats 94%. There is no prior history of bradycardia, patient is not on any beta blockers. Patient is lethargic, a poor historian, information is obtained from the emergency room and long-term record. Laboratory workup was completed, essentially unremarkable. There is no evidence of any infection, urinalysis is clean. Imaging studies were completed, chest x-ray is normal. CT of the head shows old infarcts, there is no documentation of prior history of stroke. Patient has history of seizure disorder, valproic acid level is 29. Patient is examined in the emergency room, he does not open eyes but does answer questions. He knows he is in the hospital, able to provide name, knows year is 2016 and who the upcoming president is. Patient is not sure why he's here. He denies any pain when asked. He remains in sinus bradycardia, heart rate is 45-50, no ectopy. Patient was admitted for further evaluation and treatment. (1) Hypertension (2) Altered mental status (3) Bradycardia (4) Seizure disorder (5) History of CVA (cerebrovascular accident) (6) Leukocytosis (7) Schizophrenia (8) Parkinsonism (9) Dementia following traumatic brain injury Assessment/Plan 71-year-old male with history of schizophrenia, Parkinson's, dementia, seizure disorder. Brought in for altered mental status, was found bradycardic given Atropine by EVAC . -Patient was put on continuous cardiac telemetry, bradycardia resolved -d/c IV fluids, -cardiology consult appreciated < No further cardiac w/u rec -Echo Noted , N L LVF -TSH Normal - trop Neg Hypotension ?? etiology , resolved H/H stable NO Obvious s/s of infection, except low grade temp today ?? etiology stable now Low grade temp ? etiology CXR done, no acute findings put on empiric abx. BC negative WBC now back to normal, no fever overnight appreciate ID input improved, no fevers, WBC trended back to normal, cultures negative. d/w ID, Augmentin x 3 days ? Hx Seizure disorder Neuro checks Seizure precautions EEG neg for sz spikes -Continue depakote CT finding of old strokes -Echo ordered -ASA 82 mg po daily - cont statin -lipid profile not done -Carotid US -TSH, B12 low normal -PT/ST Parkinson's -continue home meds/ sinemet History of schizoaffective disorder Continue home meds, seroquel/cogentin Dementia -Continue to monitor, resume home medications Hypertension, stable Continue home medications, CCB/MAX-I SCDs/Lovenox for DVT prophylaxis Stable for discharge Going to SNF Discharged in stable condition F/U PCP Pt Condition on Discharge: Stable Discharge Disposition: [facility] Discharge Instructions DIET: Follow Instructions for: Heart Healthy Diet Speech Therapy-Diet Recommends: Regular Fluid Restrictions: none Activities you can perform: Weight Bearing as Dragan Other Activity Instructions: fall precautions Follow up Referrals: Cardiology - 3 Weeks PCP Follow-up - 1 Week New Medications: Aspirin DR (Aspirin EC) 81 Mg Tabdr 81 MG PO DAILY hypertension #30 TAB Continued Medications: Acetaminophen (Mapap) 325 Mg Tab 650 MG PO Q4HR PRN PAIN Ref 0 TAB Amlodipine (Amlodipine) 5 Mg Tab 5 MG PO DAILY HTN #30 Ref 0 TAB Atorvastatin (Atorvastatin) 10 Mg Tab 10 MG PO HS Cholesterol Management #30 Ref 0 TAB Benztropine (Benztropine) 0.5 Mg Tab 0.5 MG PO BID PARKINSONS #[address] (Bisacodyl EC) 5 Mg Tabec 10 MG PO DAILY PRN CONSTIPATION Ref 0 TAB Carbidopa-Levodopa (Sinemet) 25-100 Mg Tab 1 TAB PO QID Parkinson Disease Mgmt #90 Ref 0 TAB Divalproex ER (Depakote ER) 500 Mg Libia 500 MG PO HS MOOD DISORDER #30 Ref 0 TAB Divalproex ER (Depakote ER) 250 Mg [place] 250 MG PO HS MOOD DISORDER #30 Ref 0 TAB Finasteride (Proscar) 5 Mg Tab 5 MG PO DAILY Do not crush. Manage Prostate Problems #30 Ref 0 TAB Lisinopril (Lisinopril) 20 Mg Tab 20 MG PO HS #30 Ref 0 TAB Memantine Er (Namenda Xr) 28 Mg Caper 28 MG PO DAILY Alzheimer Disease #30 Ref 0 CAP Omeprazole (Omeprazole) 20 Mg Cap 20 MG PO DAILYAC Oxybutynin ER 24 HR (Oxybutynin ER 24 HR) 5 Mg Tab 5 MG PO DAILY URINARY INCONTINENCE Ref 0 TAB Quetiapine XR (Seroquel XR) 300 Mg Tab 300 MG PO HS #30 Ref 0 TAB Trazodone (Trazodone) 50 Mg Tab 50 MG PO HS Control Depression #30 Ref 0 TAB Mervat Greenwood Aug 05, 2016 08:17
[2016-08-05 08:27] VITALS: BP 139/74; PULSE 83; RESP 18; TEMP 97.1; O2SAT 93
[2016-08-05] MEDS ORDERED: AUGM875T PO (08:29)
[2016-08-05] MEDS: amLODIPine BESYLATE 5 MG TAB PO SCH (09:26)
[2016-08-05] MEDS: FINASTERIDE 5 MG TAB PO SCH (09:26)
[2016-08-05] MEDS: CARBIDOPA/LEVODOPA 25 MG/100 MG TAB PO SCH (09:26)
[2016-08-05] MEDS: QUEtiapine FUMARATE 100 MG TAB PO SCH (09:27)
[2016-08-05] MEDS: BENZTROPINE MESYLATE 1 MG TAB PO SCH (09:27)
[2016-08-05] MEDS: MEMANTINE 28 MG PO SCH (09:28)
[2016-08-05] MEDS: ASPIRIN EC 81 MG TABEC PO SCH (09:31)
--- NOTE | 2016-08-05 11:19 | HHI.IDPN ---
Subjective Subjective Remarks is a 71-year-old male who is a resident from a local long-term. His PMHx is significant for dementia, seizure disorder, schizophrenia, bipolar disease, Parkinson's disease, depression, hypertension. Overnight events reviewed No fevers No rash No diarrhea No sacral decubs per RN discussion last visit. Antibiotics Ceftriaxone IV Lines Lines ok. Past Medical History reviewed Allergies: Coded Allergies: Sulfa (Verified Allergy, Intermediate, 07/16/14) Objective . Vital Signs Date Time Temp Pulse Resp B/P Pulse Ox O2 Delivery O2 Flow Rate FiO2 08/05/16 08:27 97.1 83 18 139/74 93 08/05/16 04:20 98.2 65 20 136/68 96 08/05/16 01:46 96.7 62 20 135/75 96 08/04/16 20:01 98.1 72 20 120/73 94 08/04/16 15:45 96.9 73 16 117/74 94 08/04/16 15:45 71 08/04/16 11:25 97.6 90 18 121/71 94 . Laboratory Tests Test 08/04/16 08/05/16 09:41 05:26 White Blood Count 11.0 TH/MM3 7.2 TH/MM3 Red Blood Count 4.53 MIL/MM3 4.36 MIL/MM3 Hemoglobin 13.4 GM/DL 13.0 GM/DL Hematocrit 40.3 % 38.5 % Mean Corpuscular Volume 89.0 FL 88.3 FL Mean Corpuscular Hemoglobin 29.7 PG 29.8 PG Mean Corpuscular Hemoglobin 33.3 % 33.7 % Concent Red Cell Distribution Width 13.6 % 13.3 % Platelet Count 207 TH/MM3 199 TH/MM3 Mean Platelet Volume 10.0 FL 10.0 FL Laboratory Tests Test 08/04/16 08/05/16 08:41 05:26 Sodium Level 143 MEQ/L 141 MEQ/L Potassium Level 3.8 MEQ/L 3.6 MEQ/L Chloride Level 107 MEQ/L 105 MEQ/L Carbon Dioxide Level 27.7 MEQ/L 26.2 MEQ/L Anion Gap 8 MEQ/L 10 MEQ/L Blood Urea Nitrogen 13 MG/DL 11 MG/DL Creatinine 1.06 MG/DL 0.96 MG/DL Estimat Glomerular Filtration 69 ML/MIN 78 ML/MIN Rate Random Glucose 123 MG/DL 87 MG/DL Calcium Level 8.7 MG/DL 8.3 MG/DL Microbiology Date/Time Procedure Status Source Growth 08/02/16 17:55 Aerobic Blood Culture - Preliminary Resulted Blood Peripheral NO GROWTH IN 3 DAYS 08/02/16 17:55 Anaerobic Blood Culture - Preliminary Resulted Blood Peripheral NO GROWTH IN 3 DAYS 08/02/16 18:00 Aerobic Blood Culture - Preliminary Resulted Blood Peripheral NO GROWTH IN 3 DAYS 08/02/16 18:00 Anaerobic Blood Culture - Preliminary Resulted Blood Peripheral NO GROWTH IN 3 DAYS 08/02/16 19:00 Influenza Types A,B Antigen (KHANG) - Final Complete Nasal Aspirate NEGATIVE FOR FLU A AND B ANTIGEN.... 08/03/16 04:20 Aerobic Blood Culture - Preliminary Resulted Blood Peripheral NO GROWTH IN 2 DAYS 08/03/16 04:20 Anaerobic Blood Culture - Preliminary Resulted Blood Peripheral NO GROWTH IN 2 DAYS 08/03/16 04:28 Aerobic Blood Culture - Preliminary Resulted Blood Peripheral NO GROWTH IN 2 DAYS 08/03/16 04:28 Anaerobic Blood Culture - Preliminary Resulted Blood Peripheral NO GROWTH IN 2 DAYS Imaging Last Impressions Chest X-Ray 08/02/16 0000 Signed Impressions: Service Date/Time: Tuesday, August 02, 2016 16:11 - CONCLUSION: No acute disease. Ricky Panda MD Head CT 07/31/16 1047 Signed Impressions: Service Date/Time: Sunday, July 31, 2016 11:13 - CONCLUSION: Significant ischemic changes, negative for an acute process. Elliot Bhagat MD FACR Carotid Artery Ultrasound 07/31/16 0000 Signed Impressions: Service Date/Time: Sunday, July 31, 2016 21:14 - CONCLUSION: No evidence of flow-limiting carotid stenosis. Osmar Welch MD Physical Exam GENERAL: This is a well-nourished, well-developed patient, in no apparent distress. SKIN: No rashes, ecchymoses or lesions. Cool and dry. HEAD: Atraumatic. Normocephalic. No temporal or scalp tenderness. EYES: Pupils equal round and reactive. Extraocular motions intact. No scleral icterus. No injection or drainage. ENT: Nose without bleeding, purulent drainage or septal hematoma. Throat without erythema, tonsillar hypertrophy or exudate. Uvula midline. Airway patent. NECK: Trachea midline. Supple, nontender, no meningeal signs. CARDIOVASCULAR: Regular rate and rhythm without murmurs, gallops, or rubs. RESPIRATORY: Clear to auscultation. Breath sounds equal bilaterally. No wheezes , rales, or rhonchi. GASTROINTESTINAL: Abdomen soft, non-tender, nondistended. No hepato-splenomegaly , or palpable masses. No guarding. MUSCULOSKELETAL: Extremities without clubbing, cyanosis, or edema. No joint tenderness, effusion, or edema noted. No calf tenderness. Negative Homans sign bilaterally. NEUROLOGICAL: Awake and alert. tremors cooperative iv lines ok. Assessment & Plan Remarks SIRS(fever and leucocytosis) Seizure, AMS on admission ? Aspiration related chemical pneumonitis related SIRS. No diarrhea, lines ok, Urine clear. Parkinsons disease Seizure disorder Recs: DC Ceftriaxone IV Recommend Augmentin for 3 more days. Likely SIRS from chemical pneumonitis from mild aspiration hence CXR clear. d/w pt and primary team. Will sign off please call back if any change in clinical condition or questions. Melony Xiong MD Aug 05, 2016 11:19
[2016-08-05] MEDS ORDERED: AMOXICILLIN/CLAVULANATE K 500 MG TAB PO SCH (14:00)
== END 2016-08-05 12:23 | DRG 308 ==
LOC: NEPC 10:43 → NEDA 12:27 → NEPGCP 18:45 → INTOOBSV 08-02 21:56 → OBSVTOIN 08-02 21:56
PROVIDERS: ADMIT Specialist; ATTEND Specialist
DX: R00.1 Bradycardia, unspecified (principal); J69.0 Pneumonitis due to inhalation of food and vomit; I95.9 Hypotension, unspecified; R65.10 Systemic inflammatory response syndrome (SIRS) of non-infectious origin without acute organ dysfunction; G20 Parkinson's disease; F03.90 Unspecified dementia, unspecified severity, without behavioral disturbance, psychotic disturbance, mood disturbance, and anxiety; D72.829 Elevated white blood cell count, unspecified; R41.82 Altered mental status, unspecified; I10 Essential (primary) hypertension; Z87.820 Personal history of traumatic brain injury; G40.909 Epilepsy, unspecified, not intractable, without status epilepticus; Z86.73 Personal history of transient ischemic attack (TIA), and cerebral infarction without residual deficits; F31.9 Bipolar disorder, unspecified; F25.9 Schizoaffective disorder, unspecified; E78.5 Hyperlipidemia, unspecified; Z79.82 Long term (current) use of aspirin
CPT/HCPCS: 70450; 71010; 80048; 80053; 80164; 80307; 81001; 82140; 82533; 82607; 84443; 84484; 85025; 85027; 85610; 85652; 85730; 86140; 87040; 87804; 93005; 93306; 93880; 95819; G8987-GP; G8988-GP; G8996-GN; G8997-GN; G8998-GN; J0696; J1650; J7030; J7040; P9612

== ENCOUNTER 2016-08-21 21:39 | Inpatient (IN) | payer MEDICARE, OTHER ==
[~2016-08-21] VITALS: Ht 172.7 cm; Wt 77.1 kg
[~2016-08-21 21:39] MED LIST changes: -AMLO5 PO; +AMLO5TAB2 PO; +ASPI81TA11 PO; +ATOR10TA15 PO; +AUGM875T PO; +BENZ0.5T PO; -BUSP10 PO; -CARB25TA PO; +DEPA500T3 PO; +FLEE5TAB PO; +LISI-515 PO; -LISI20 PO; +MAPA325T PO; +MEMA28CA PO; +OMEP20CA2 PO; -PANT20 PO; +PROS5TAB PO; -PROS5TAB2 PO; +QUET300XR PO; -SERO100T PO; +SINE25TA PO; -TRAZ100 PO; +TRAZ50TA12 PO
[2016-08-21 21:42] VITALS: BP 97/56; PULSE 65; RESP 19; TEMP 97.5; O2SAT 95
[2016-08-21] MEDS ORDERED: SODIUM CHLORIDE 0.9% FLUSH 5 ML FLUSH IVF PRN (21:45)
[2016-08-21 21:52] VITALS: BP 82/53; PULSE 64; RESP 16; O2SAT 97
[2016-08-21 22:27] LABS: AUTOMATED NEUTROPHIL # 6.8 TH/MM3 (1.8-7.7); BASOPHIL # 0.1 TH/MM3 (0-0.2); BASOPHIL % 0.9 % (0.0-2.0); EOSINOPHIL # 0.1 TH/MM3 (0-0.4); EOSINOPHIL % 0.8 % (0.0-4.0); HEMATOCRIT 39.4 % (39.0-51.0); HEMO FLAGS DIFF FINAL; LYMPH % 26.2 % (9.0-44.0); LYMPHOCYTE # 2.9 TH/MM3 (1.0-4.8); MEAN CELL VOLUME 88.2 FL (80.0-100.0); MEAN CORPUSCULAR HEMOGLOBIN 29.8 PG (27.0-34.0); MEAN CORPUSCULAR HGB CONC 33.8 % (32.0-36.0); MONO % 10.6 % (0.0-8.0); NEUT % 61.5 % (16.0-70.0); PLATELET COUNT 302 TH/MM3 (150-450); RED BLOOD COUNT 4.47 MIL/MM3 (4.50-5.90); RED CELL DISTRIBUTION WIDTH 13.8 % (11.6-17.2)
--- NOTE | 2016-08-21 22:28 | RADRPT ---
EXAM DATE/TIME: 08/21/2016 19:57 [facility] COMPARISON: CHEST SINGLE AP, August 02, 2016, 16:11. INDICATIONS : Syncope. MEDICAL HISTORY : unobtainable. SURGICAL HISTORY : unobtainable. ENCOUNTER: Initial ACUITY: 1 day PAIN SCORE: 0/10 LOCATION: Bilateral chest FINDINGS: A single view of the chest demonstrates subsegmental basilar opacity most characteristic of atelectas is. Mild elevation right hemidiaphragm. No significant effusion. No pneumothorax. Heart size upper li mits normal. CONCLUSION: 1. Basilar atelectasis. Elevated right hemidiaphragm. No effusion or pneumothorax. Ranulfo Lei MD on August 21, 2016 at 22:26 Board Certified Radiologist. This report was verified electronically.
[2016-08-21 22:30] VITALS: BP 120/60; PULSE 77; RESP 20; O2SAT 98
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
[2016-08-21 22:41] LABS: ANION GAP 11 MEQ/L (5-15); AST (GOT) 25 U/L (15-37); BICARBONATE 21.2 MEQ/L (21.0-32.0); BLOOD UREA NITROGEN 22 MG/DL (7-18); CHLORIDE 99 MEQ/L (98-107); GLOMERULAR FILTRATION RATE 46 ML/MIN (>89); POTASSIUM 3.7 MEQ/L (3.5-5.1); SODIUM (NA) 131 MEQ/L (136-145)
[2016-08-21] MEDS ORDERED: SODIUM CHLOR 0.9% 1000 ML INJ 1,000 ML IV SCH (22:45)
[2016-08-21 22:46] LABS: ALKALINE PHOSPHATASE 45 U/L (45-117); ALT (GPT) 6 U/L (12-78); TOTAL BILIRUBIN ADULT 0.6 MG/DL (0.2-1.0)
--- NOTE | 2016-08-21 23:14 | RADRPT ---
EXAM DATE/TIME: 08/21/2016 23:04 [facility] COMPARISON: CT BRAIN W/O CONTRAST, July 31, 2016, 11:13. INDICATIONS : Dizziness along with low blood pressure. RADIATION DOSE: 39.32 CTDIvol (mGy) MEDICAL HISTORY : Cardiovascular disease. Hypertension. Asthma SURGICAL HISTORY : None. ENCOUNTER: Initial ACUITY: 1 day PAIN SCALE: 0/10 LOCATION: cranial TECHNIQUE: Multiple contiguous axial images were obtained of the head. Using automated exposure control and adj ustment of the mA and/or kV according to patient size, radiation dose was kept as low as reasonably a chievable to obtain optimal diagnostic quality images. FINDINGS: Osseous structures are intact. There is mild atrophy. 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 No signs of acute infarct, hemorrhage, or mass . CONCLUSION: No significant change has occurred. Severo Robledo MD on August 21, 2016 at 23:12 Board Certified Radiologist. This report was verified electronically.
[2016-08-22] VITALS (15 sets, daily range): BP systolic 84–136; BP diastolic 51–76; PULSE 53–86; RESP 12–20; TEMP 97.8–98.9; O2SAT 94–100
[2016-08-22 00:08] LABS: BLOOD, URINE NEG (NEG); GLUCOSE,URINE NEG (NEG); HYALINE CAST, URINE 1 /lpf (RARE); KETONE, URINE TRACE mg/dL (NEG); MUCUS URINE FEW /lpf (OCC); NITRITE,URINE NEG (NEG); URINE COLOR YELLOW (YELLW/STRAW)
[2016-08-22 00:09] LABS: COMMENT (UR) CATH-CULT NOT IND; CULTURE IF INDICATED CATH CULTURE NOT IND
[2016-08-22] MEDS ORDERED: SODIUM CHLOR 0.9% 1000 ML INJ 1,000 ML IV SCH ×2 (01:15)
[2016-08-22] MEDS ORDERED: ACETAMINOPHEN 325 MG TAB PO PRN (02:30)
[2016-08-22] MEDS ORDERED: ONDANSETRON HCL 4 MG/2 ML VIAL IVP PRN (02:30)
[2016-08-22] MEDS ORDERED: SODIUM CHLORIDE 0.9% FLUSH 5 ML FLUSH FLUSH PRN (02:30)
[2016-08-22] MEDS ORDERED: SENNOSIDES 8.6 MG TAB PO PRN (02:30)
[2016-08-22] MEDS: SODIUM CHLOR 0.9% 1000 ML INJ 1,000 ML IV SCH ×2 (03:06→12:29)
[2016-08-22 06:33] LABS: ANION GAP 10 MEQ/L (5-15); BICARBONATE 20.3 MEQ/L (21.0-32.0); BLOOD UREA NITROGEN 15 MG/DL (7-18); CHLORIDE 111 MEQ/L (98-107); CREATINE KINASE 425 U/L (39-308); GLOMERULAR FILTRATION RATE 75 ML/MIN (>89); POTASSIUM 3.6 MEQ/L (3.5-5.1); SODIUM (NA) 141 MEQ/L (136-145)
[2016-08-22 06:48] LABS: CKMB 3.7 NG/ML (0.5-3.6)
--- NOTE | 2016-08-22 08:05 | EKG ---
Date Performed: 08/22/2016 Time Performed: 03:30:11 PTAGE: 71 years EKG: Sinus rhythm Mildly PROLONGED QT INTERVAL ABNORMAL ECG NO SIGNIFICANT CHANGE FROM PRIOR ELECTROCARDIOGRAM. PREVIOUS TRACING : 08/21/2016 21.42 DOCTOR: Bijan Maravilla Interpretating Date/Time 08/22/2016 08:05:07
--- NOTE | 2016-08-22 08:16 | EKG ---
Date Performed: 08/21/2016 Time Performed: 21:42:30 PTAGE: 71 years EKG: Sinus rhythm NORMAL ECG NO SIGNIFICANT CHANGE FROM PRIOR ELECTROCARDIOGRAM. PREVIOUS TRACING : 07/31/2016 11.55 DOCTOR: Bijan Maravilla Interpretating Date/Time 08/22/2016 08:15:02
[2016-08-22] MEDS: SODIUM CHLORIDE 0.9% FLUSH 5 ML FLUSH FLUSH SCH ×2 (09:00→21:46)
[2016-08-22] MEDS: ENOXAPARIN SODIUM 40 MG/0.4 ML SYRINGE SQ SCH (09:48)
[2016-08-22 12:00] LABS: CREATINE KINASE 398 U/L (39-308)
[2016-08-22 12:12] LABS: CKMB 4.4 NG/ML (0.5-3.6)
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
[2016-08-22] MEDS ORDERED: BISACODYL EC 5 MG TABEC PO PRN (16:15)
[2016-08-22] MEDS: CARBIDOPA/LEVODOPA 25 MG/100 MG TAB PO SCH ×2 (18:03→21:39)
[2016-08-22] MEDS: MEMANTINE HCL 5 MG TAB PO SCH (18:15)
[2016-08-22] MEDS ORDERED: DIVALPROEX SODIUM E.R. 500 MG TAB PO SCH (21:00)
[2016-08-22] MEDS ORDERED: DIVALPROEX SODIUM E.R. 250 MG TAB PO SCH ×2 (21:00)
[2016-08-22] MEDS: BENZTROPINE MESYLATE 1 MG TAB PO SCH (21:38)
[2016-08-22] MEDS: LISINOPRIL 20 MG TAB PO SCH (21:39)
[2016-08-22] MEDS: traZODone HCL 50 MG TAB PO SCH (21:39)
[2016-08-22] MEDS: ATORVASTATIN 10 MG TAB PO SCH (21:39)
[2016-08-22] MEDS: QUEtiapine FUMARATE 50 MG EXTENDED RELEASE TABLET PO SCH (21:39)
[2016-08-23] VITALS: BP 116/66; PULSE 66; RESP 18; TEMP 98.4; O2SAT 97
[2016-08-23 04:00] VITALS: BP 113/66; PULSE 51; RESP 18; TEMP 98.3; O2SAT 97
[2016-08-23 08:00] VITALS: BP 129/66; PULSE 50; PULSE 67; RESP 18; TEMP 98.2; O2SAT 96
[2016-08-23] MEDS: MEMANTINE HCL 5 MG TAB PO SCH (08:39)
[2016-08-23] MEDS: TOLTERODINE TARTRATE 2 MG CAP LA PO SCH (08:39)
[2016-08-23] MEDS: PANTOPRAZOLE SOD 20 MG DELAYED RELEASE TAB PO SCH (08:39)
[2016-08-23] MEDS: CARBIDOPA/LEVODOPA 25 MG/100 MG TAB PO SCH ×4 (08:39→20:33)
[2016-08-23] MEDS: ASPIRIN EC 81 MG TABEC PO SCH (08:39)
[2016-08-23] MEDS: amLODIPine BESYLATE 5 MG TAB PO SCH (08:39)
[2016-08-23] MEDS: BENZTROPINE MESYLATE 1 MG TAB PO SCH ×2 (08:39→20:33)
[2016-08-23] MEDS: FINASTERIDE 5 MG TAB PO SCH (08:39)
[2016-08-23] MEDS: ENOXAPARIN SODIUM 40 MG/0.4 ML SYRINGE SQ SCH (08:40)
[2016-08-23] MEDS: SODIUM CHLORIDE 0.9% FLUSH 5 ML FLUSH FLUSH SCH ×2 (08:40→20:35)
[2016-08-23] MEDS ORDERED: NON-FORMULARY DRUG (Memantine Er (Namenda Xr) 28 MG) PO SCH (09:00)
[2016-08-23] MEDS ORDERED: INFLUENZA VIRUS VACCINE (QUADRIVALENT) 0.5 ML SYR IM ONE (10:00)
[2016-08-23] MEDS ORDERED: PNEUMOCOCCAL POLYVALENT INJ 25 MCG/0.5 ML SYR IM ONE (10:00)
--- NOTE | 2016-08-23 10:57 | HHI.PR ---
Subjective Remarks Follow-up visit syncope, Parkinson's disease, dementia. Patient seen today. Awake and alert with confusion. Responds to questions and commands. Denies pain and discomfort. Denies SOB/ dyspnea. Denies chest pain, palpitations, headaches, dizziness. Denies fevers, chills, n/v/d. Objective Vitals Vital Signs Date Time Temp Pulse Resp B/P Pulse Ox O2 Delivery O2 Flow Rate FiO2 08/23/16 08:00 98.2 67 18 129/66 96 08/23/16 04:00 98.3 51 18 113/66 97 08/23/16 00:00 98.4 66 18 116/66 97 08/22/16 21:07 98.9 72 16 127/68 95 08/22/16 20:10 65 08/22/16 17:30 86 08/22/16 16:00 97.8 67 20 136/72 99 08/22/16 12:00 98.3 59 16 136/62 94 08/22/16 11:16 98.0 59 17 103/58 97 Room Air I/O 08/22/16 08/22/16 08/22/16 08/23/16 08/23/16 08/23/16 07:00 15:00 23:00 07:00 15:00 23:00 Intake Total 1310 ml 938 ml 746 ml Output Total 650 ml 650 ml 600 ml Balance 660 ml 288 ml 146 ml Intake Oral 480 ml 480 ml 120 ml IV Total 830 ml 458 ml 626 ml Output Urine Total 650 ml 650 ml 600 ml # Voids 2 # Bowel Movements 0 0 2 Result Diagram: 08/21/16219908/22/16 0447 Imaging Last Impressions Head CT 08/21/162141 Signed Impressions: Service Date/Time: Sunday, August 21, 2016 23:04 - CONCLUSION: No significant change has occurred. Severo Robledo MD Chest X-Ray 08/21/162141 Signed Impressions: Service Date/Time: Sunday, August 21, 2016 19:57 - CONCLUSION: 1. Basilar atelectasis. Elevated right hemidiaphragm. No effusion or pneumothorax. Ranulfo Lei MD Objective Remarks GENERAL: This is a well-nourished, well-developed patient, in no apparent distress. HEENT: Normocephalic. Pupils equal round and reactive. Nose without bleeding. Airway patent. NECK: Trachea midline. No JVD. Supple. CARDIOVASCULAR: Regular rate and rhythm without murmurs, gallops, or rubs. RESPIRATORY: Clear to auscultation. Breath sounds equal bilaterally. No wheezes , rales, or rhonchi. GASTROINTESTINAL: Abdomen soft, non-tender, nondistended. Bowel Sounds normoactive x4. MUSCULOSKELETAL: Extremities without clubbing, cyanosis, trace bilateral lower extremity edema. Right upper arm, hand notable tremors. NEUROLOGICAL: Awake and alert. Oriented to place and self. MAJOR weakly, stiffness noted. Normal speech. Medications and IVs Current Medications Medications (Trade) Dose Ordered Sig/Kirt Route Start Time Stop Time Status Last Admin (NS 1000 ml Inj) 1,000 ml @ 75 mls/hr [id number] IV 08/22/16 02:23 08/22/16 12:29 (NS Flush) 2 ml UNSCH PRN FLUSH 08/22/16 02:30 (NS Flush) 2 ml BID FLUSH 08/22/16 09:00 08/23/16 08:40 (Tylenol) 650 mg Q4H PRN PO 08/22/16 02:30 (Zofran Inj) 4 mg Q6H PRN IVP 08/22/16 02:30 (Senokot) 17.2 mg Q12H PRN PO 08/22/16 02:30 (Lovenox Inj) 40 mg Q24H SQ 08/22/16 09:00 08/23/16 08:40 (Norvasc) 5 mg DAILY PO 08/23/16 09:00 08/23/16 08:39 (Ecotrin Ec) 81 mg DAILY PO 08/23/16 09:00 08/23/16 08:39 (Lipitor) 10 mg HS PO 08/22/16 21:00 08/22/16 21:39 (Cogentin) 0.5 mg BID PO 08/22/16 21:00 08/23/16 08:39 (Dulcolax Ec) 10 mg DAILY PRN PO 08/22/16 16:15 (Sinemet 25-100 Mg) 1 tab QID PO 08/22/16 18:00 08/23/16 12:47 (Proscar) 5 mg DAILY PO 08/23/16 09:00 08/23/16 08:39 (Prinivil) 20 mg HS PO 08/22/16 21:00 08/22/16 21:39 (Desyrel) 50 mg HS PO 08/22/16 21:00 08/22/16 21:39 (Protonix) 20 mg DAILYAC PO 08/23/16 08:00 08/23/16 08:39 (Detrol La) 2 mg DAILY PO 08/23/16 09:00 08/23/16 08:39 (SEROquel XR) 100 mg HS PO 08/22/16 21:00 08/22/16 21:39 (Namenda) 5 mg DAILY PO 08/22/16 18:00 08/23/16 08:39 (Depakote Er) 250 mg HS PO 08/23/16 21:00 (Depakote Er) 500 mg HS PO 08/23/16 21:00 A/P Problem List: (1) Syncope ICD Code: R55 Status: Acute (2) Parkinsonism ICD Code: G20 Status: Chronic (3) Schizophrenia ICD Code: F20.9 Status: Chronic (4) Seizure disorder ICD Code: G40.909 Status: Acute (5) Hypertension ICD Code: I10 Status: Chronic Assessment and Plan Mr. Marino is a 71-year-old male with a history of schizophrenia, Parkinson's disease, hypertension, seizure disorder who presents to the emergency department today from his half-way due to syncopal episode as well as altered mental status. - Syncope - Parkinson's disease - Seizure disorder - Patient's syncopal episode may be medication related. Use of carbidopa/ levodopa. - Orthostatic BP ordered. - PT consult. - Neurology consult to evaluate patient's seizure disorder, Parkinson's and medications. - EKG reviewed. Shows sinus rhythm. Heart rate in the upper 50s and 60s. - Echo from 08/01/2016 --> Normal EF 55-60%. Grossly normal valves. - Continue Cogentin, carbidopalevodopa, memantine, trazodone, Depakote. May need medication adjustment, we'll wait for neurology input. - Monitor for risk for falls. - EEG and MRI brain pending. - Hypertension - Hyperlipidemia - Continue aspirin, atorvastatin, amlodipine 5 mg, lisinopril 20 mg. - BPH - continue finasteride 5 mg by mouth daily. Full code. DVT prop Lovenox. Discussed with patient, nursing Written by Ramy Johnson, acting as scribe for Dr. Garcias on 08/23/16 at 08: 56. Discharge Planning Not yet ready for discharge. Attending Statement The documentation accurately reflects the work performed [id number] by me on at 08:56. Problem Qualifiers (1) Syncope: Qualified Code: R55 - Syncope, unspecified syncope type Ramy Guzmán Aug 23, 2016 10:57 Todd Mayo DO Aug 23, 2016 14:32
--- NOTE | 2016-08-23 11:05 | MB ---
cc: ALANA ELLIOTT M.D. DATE OF CONSULTATION: 08/23/2016 REASON FOR CONSULTATION Syncope versus seizure. HISTORY OF PRESENT ILLNESS Mr. Marino is a 71-year-old man who has a history of Parkinson's disease as well as a history of seizure disorder and dementia. He resides at a longterm, was found to have decreased level of consciousness and was found unresponsive at the dinner table the night prior to admission. EMS was called. On the scene the GCS was 3. As he was brought to the hospital he became increasingly more responsive. He did have a low blood pressure in the 70s systolic. No tonic-clonic activity was identified. He had similar symptoms of syncope in the past, worked up with an echocardiogram. He has a history of seizures but states these have been stable with no seizures for a number of years. PAST MEDICAL HISTORY 1. Parkinson's disease. 2. Schizophrenia. 3. Dementia. 4. Syncope. 5. Seizures in the past. 6. History of craniotomy in childhood with history of intracranial hemorrhage. 7. History of ventriculostomy. 8. History of traumatic brain injury in youth. MEDICATIONS Current medications are: 1. Norvasc 5 mg daily. 2. Aspirin 81 mg daily. 3. Proscar 5 mg daily. 4. Detrol LA 2 mg daily. 5. Protonix 20 mg daily. 6. Lipitor 10 mg daily. 7. Cogentin 0.5 mg b.i.d. 8. Depakote ER 750 mg h.s. 9. Seroquel 100 mg h.s. 10.Desyrel 50 mg daily. 11.Prinivil 20 mg daily. 12.Sinemet 25/100 q.i.d. 13.Namenda 5 mg daily. 14.Dulcolax. 15.Lovenox subcu 40 mg daily. 16.Zofran p.r.n. NEUROLOGICAL EXAMINATION VITAL SIGNS: Blood pressure 129/66, pulse 67, respirations 18, temperature 98.2 degrees. HIGHER CORTICAL FUNCTION: He is alert. Speech is hypophonic. He follows commands. CRANIAL NERVES: Decreased facial expressiveness. The extraocular movements are intact. There is no facial asymmetry. MOTOR: On motor exam he is bradykinetic. He has resting tremors in both upper extremities, 3 Hz pill rolling. Strength is 5/5 throughout but he is very bradykinetic with cogwheel rigidity. Reflexes 2+ symmetric with no Babinski sign present. IMAGING CT of the brain shows mild atrophy, remote bilateral frontal infarcts with encephalomalacia, remote right parietal infarct with encephalomalacia, no acute change, no hemorrhage identified. LABORATORY DATA White count 11,000, hemoglobin 13.3, hematocrit 39% platelet count 302,000. Sodium 141, potassium 3.6, chloride 111, CO2 20.3, BUN 15, creatinine 0.99, AST 25, ALT 6. Tox screen: Depakote level is 22. Urinalysis: pH 5, specific gravity 1.009. IMPRESSION Syncope. I suspect this may have been related to hypotension. With his history of Parkinson's disease he could have orthostatic hypotension. Seizure would be a possibility as well. He does have a subtherapeutic Depakote level. RECOMMENDATIONS I would like to get an MRI of the brain and EEG. Would recommend increasing the Depakote to 750 mg b.i.d. He had a recent echocardiogram in July of this year to evaluate for syncope showing an EF of 55-60%. Left ventricular systolic function appeared to be normal. Aortic valve had no stenosis, no regurgitation. Mitral valve was normal. Left atrial size normal. Pulmonic valve was not well-visualized. Tricuspid valve was normal. I do not think we need to repeat the echocardiogram. He also had a carotid ultrasound in July which was negative so I do not think this needs to be repeated as well. Would also recommend checking orthostatic blood pressure and pulse for the possibility of orthostatic hypotension as result of his parkinsonism. Thank you for asking me to see this patient. MD JAYESH Barreto/SIXTO /8:57 AM /10:45 AM
[2016-08-23 12:00] VITALS: BP_SYST 120; BP_SYST 135; BP_SYST 153; BP_DIAS 70; BP_DIAS 85; BP_DIAS 86; PULSE 64; PULSE 87; PULSE 89; RESP 18; TEMP 98.2; O2SAT 96
[2016-08-23 16:00] VITALS: BP_SYST 138; BP_SYST 163; BP_SYST 177; BP_DIAS 74; BP_DIAS 78; BP_DIAS 89; PULSE 66; PULSE 79; PULSE 80; RESP 16; TEMP 99.2; O2SAT 97
[2016-08-23] MEDS ORDERED: GADODIAMIDE PF 287 MG/ML 20 ML VIAL (for RAD MRI) IV ONE (18:07)
[2016-08-23] MEDS: SODIUM CHLOR 0.9% 1000 ML INJ 1,000 ML IV SCH (18:20)
--- NOTE | 2016-08-23 18:40 | RADRPT ---
EXAM DATE/TIME: 08/23/2016 17:30 [facility] COMPARISON: CT BRAIN W/O CONTRAST, August 21, 2016, 23:04. INDICATIONS : Seizures. CONTRAST: 16 cc Omniscan (gadodiamide) IV MEDICAL HISTORY : Parkinson's. Traumatic brain injury. SURGICAL HISTORY : Drains in brain for brain injury. ENCOUNTER: Subsequent ACUITY: 3 day PAIN SCORE: 0/10 LOCATION: Head TECHNIQUE: Multiplanar, multisequence MRI of the brain was performed both prior to and following the administrat ion of paramagnetic contrast. FINDINGS: Moderate to severe periventricular and subcortical white matter small vessel ischemic changes are not ed bilaterally. Bilateral frontal lobe infarcts (right larger than left) are again noted with enceph alomalacia noted. Diffuse cerebral atrophy is noted. No acute infarct is noted. There is no acute hemorrhage, midline shift, or extra-axial fluid collections. Scattered old tiny lacunar infarcts are noted within the bilateral basal ganglia. No abnormally enhancing mass lesion is noted. There is a mucus retention cyst within the right maxillary sinus. There are tiny old lacunar infarcts within t he right cerebellar hemisphere. CONCLUSION: 1. Stable encephalomalacia involving the frontal lobes bilaterally (right more extensive than left) c onsistent with old infarcts. 2. Moderate to severe periventricular and subcortical white matter small vessel ischemic changes bila terally. 3. Scattered old lacunar infarcts within the bilateral basal ganglia and right cerebellar hemisphere. 4. Diffuse cerebral atrophy. 5. No acute infarct, acute hemorrhage, midline shift or extra-axial fluid collections. 6. Mucus retention cysts within the right maxillary sinus. Clarence Caceres MD on August 23, 2016 at 18:30 Board Certified Radiologist. This report was verified electronically.
[2016-08-23 20:00] VITALS: BP_SYST 153; BP_SYST 155; BP_SYST 169; BP_DIAS 74; BP_DIAS 76; BP_DIAS 80; PULSE 75; RESP 18; TEMP 98.2; O2SAT 96
[2016-08-23] MEDS: traZODone HCL 50 MG TAB PO SCH (20:33)
[2016-08-23] MEDS: DIVALPROEX SODIUM E.R. 250 MG TAB PO SCH (20:34)
[2016-08-23] MEDS: QUEtiapine FUMARATE 50 MG EXTENDED RELEASE TABLET PO SCH (20:35)
[2016-08-23] MEDS: LISINOPRIL 20 MG TAB PO SCH (20:35)
[2016-08-23] MEDS: ATORVASTATIN 10 MG TAB PO SCH (20:35)
[2016-08-23] MEDS: DIVALPROEX SODIUM E.R. 500 MG TAB PO SCH (20:40)
--- NOTE | 2016-08-23 21:23 | EKG ---
Date Performed: 08/22/2016 Time Performed: 11:27:17 PTAGE: 71 years EKG: SINUS BRADYCARDIA When compared to previous tracing, QT interval slightly shorter Otherwise no significant change. BORDERLINE ECG PREVIOUS TRACING : 08/22/2016 03.30 DOCTOR: Yair Ramos Interpretating Date/Time 08/23/2016 21:22:02
[2016-08-24 00:26] VITALS: BP 128/70; PULSE 52; RESP 18; TEMP 97.8; O2SAT 98
[2016-08-24 04:00] VITALS: BP 141/66; PULSE 52; RESP 18; TEMP 97.7; O2SAT 99
[2016-08-24] MEDS: SODIUM CHLOR 0.9% 1000 ML INJ 1,000 ML IV SCH (05:59)
[2016-08-24 08:00] VITALS: BP_SYST 136; BP_SYST 153; BP_SYST 163; BP_DIAS 107; BP_DIAS 76; BP_DIAS 87; PULSE 114; PULSE 76; RESP 20; TEMP 98.1; O2SAT 94
--- NOTE | 2016-08-24 08:15 | MG ---
cc: FOREIGN WRIGHT Lab No:[id number] Date: 08/24/2016 Age: 71 Sex: M Race: 71-year-old, change in mental status, Norvasc, Lipitor, Sinemet Seroquel, Namenda. Diffuse 6 to 7 Hz 60 microvolt rhythm is seen. The patient falls asleep with few vertex sharp waves. Photic stimulation was performed without significant posterior driving. No hemisphere asymmetries are noted. No epileptiform or seizure activity is seen. IMPRESSION Diffuse theta slowing associated with a mild to moderate diffuse encephalopathy. No focal abnormalities were noted. No seizure activity was seen. MD VANGIE Foster/[place] /7:07 AM /8:00 AM
[2016-08-24] MEDS: BENZTROPINE MESYLATE 1 MG TAB PO SCH ×2 (08:31→20:21)
[2016-08-24] MEDS: ENOXAPARIN SODIUM 40 MG/0.4 ML SYRINGE SQ SCH (08:31)
[2016-08-24] MEDS: PANTOPRAZOLE SOD 20 MG DELAYED RELEASE TAB PO SCH (08:31)
[2016-08-24] MEDS: MEMANTINE HCL 5 MG TAB PO SCH (08:31)
[2016-08-24] MEDS: amLODIPine BESYLATE 5 MG TAB PO SCH (08:31)
[2016-08-24] MEDS: TOLTERODINE TARTRATE 2 MG CAP LA PO SCH (08:31)
[2016-08-24] MEDS: ASPIRIN EC 81 MG TABEC PO SCH (08:31)
[2016-08-24] MEDS: FINASTERIDE 5 MG TAB PO SCH (08:31)
[2016-08-24] MEDS: CARBIDOPA/LEVODOPA 25 MG/100 MG TAB PO SCH ×4 (08:31→20:23)
[2016-08-24] MEDS: SODIUM CHLORIDE 0.9% FLUSH 5 ML FLUSH FLUSH SCH ×2 (09:00→20:27)
--- NOTE | 2016-08-24 09:30 | HHI.PR ---
Subjective Remarks The patient was feeling well this morning. He denied any chest pain or shortness of breath. He denied any further episodes of fainting. He says he has been ambulating with physical therapy. Objective Vitals Vital Signs Date Time Temp Pulse Resp B/P Pulse Ox O2 Delivery O2 Flow Rate FiO2 08/24/16 04:00 97.7 52 18 141/66 99 08/24/16 00:26 97.8 52 18 128/70 98 08/23/16 20:00 98.2 75 18 153/76 96 155/74 169/80 08/23/16 16:00 79 177/89 08/23/16 16:00 99.2 66 16 138/78 97 08/23/16 16:00 80 163/74 08/23/16 12:00 98.2 64 18 120/70 96 08/23/16 12:00 87 135/85 08/23/16 12:00 89 153/86 I/O 08/23/16 08/23/16 08/23/16 08/24/16 08/24/16 08/24/16 07:00 15:00 23:00 07:00 15:00 23:00 Intake Total 746 ml 1203 ml 240 ml 920 ml Output Total 600 ml 700 ml Balance 146 ml 503 ml 240 ml 920 ml Intake Oral 120 ml 480 ml 240 ml 240 ml IV Total 626 ml 723 ml 680 ml Output Urine Total 600 ml 700 ml # Voids 2 2 2 # Bowel Movements 2 0 Result Diagram: 08/21/16 2200 08/22/16 0447 Imaging Last Impressions Brain MRI 08/23/16 0000 Signed Impressions: Service Date/Time: Tuesday, August 23, 2016 17:30 - CONCLUSION: 1. Stable encephalomalacia involving the frontal lobes bilaterally (right more extensive than left) consistent with old infarcts. 2. Moderate to severe periventricular and subcortical white matter small vessel ischemic changes bilaterally. 3. Scattered old lacunar infarcts within the bilateral basal ganglia and right cerebellar hemisphere. 4. Diffuse cerebral atrophy. 5. No acute infarct, acute hemorrhage, midline shift or extra-axial fluid collections. 6. Mucus retention cysts within the right maxillary sinus. Clarence Caceres MD Head CT 08/21/16 2141 Signed Impressions: Service Date/Time: Sunday, August 21, 2016 23:04 - CONCLUSION: No significant change has occurred. Severo Robledo MD Chest X-Ray 08/21/162141 Signed Impressions: Service Date/Time: Sunday, August 21, 2016 19:57 - CONCLUSION: 1. Basilar atelectasis. Elevated right hemidiaphragm. No effusion or pneumothorax. Ranulfo Lei MD Objective Remarks GENERAL: This is a well-nourished, well-developed patient, in no apparent distress, baseline tremor. HEENT: Normocephalic. Pupils equal round and reactive. Nose without bleeding. Airway patent. NECK: Trachea midline. No JVD. Supple. CARDIOVASCULAR: Regular rate and rhythm without murmurs, gallops, or rubs. RESPIRATORY: Clear to auscultation. Breath sounds equal bilaterally. No wheezes , rales, or rhonchi. GASTROINTESTINAL: Abdomen soft, non-tender, nondistended. Bowel Sounds normoactive x4. MUSCULOSKELETAL: Extremities without clubbing, cyanosis or lower extremity edema. NEUROLOGICAL: Awake and alert. Oriented to place and self. MAJOR weakly, stiffness noted. Normal speech. PSYCH: Mood and affect appropriate. Medications and IVs Current Medications Medications (Trade) Dose Ordered Sig/Kirt Route Start Time Stop Time Status Last Admin (NS 1000 ml Inj) 1,000 ml @ 75 mls/hr [id number] IV 08/22/16 02:23 08/24/16 05:59 (NS Flush) 2 ml UNSCH PRN FLUSH 08/22/16 02:30 (NS Flush) 2 ml BID FLUSH 08/22/16 09:00 08/23/16 20:35 (Tylenol) 650 mg Q4H PRN PO 08/22/16 02:30 (Zofran Inj) 4 mg Q6H PRN IVP 08/22/16 02:30 (Senokot) 17.2 mg Q12H PRN PO 08/22/16 02:30 (Lovenox Inj) 40 mg Q24H SQ 08/22/16 09:00 08/24/16 08:31 (Norvasc) 5 mg DAILY PO 08/23/16 09:00 08/24/16 08:31 (Ecotrin Ec) 81 mg DAILY PO 08/23/16 09:00 08/24/16 08:31 (Lipitor) 10 mg HS PO 08/22/16 21:00 08/23/16 20:35 (Cogentin) 0.5 mg BID PO 08/22/16 21:00 08/24/16 08:31 (Dulcolax Ec) 10 mg DAILY PRN PO 08/22/16 16:15 (Sinemet 25-100 Mg) 1 tab QID PO 08/22/16 18:00 08/24/16 08:31 (Proscar) 5 mg DAILY PO 08/23/16 09:00 08/24/16 08:31 (Prinivil) 20 mg HS PO 08/22/16 21:00 08/23/16 20:35 (Desyrel) 50 mg HS PO 08/22/16 21:00 08/23/16 20:33 (Protonix) 20 mg DAILYAC PO 08/23/16 08:00 08/24/16 08:31 (Detrol La) 2 mg DAILY PO 08/23/16 09:00 08/24/16 08:31 (SEROquel XR) 100 mg HS PO 08/22/16 21:00 08/23/16 20:35 (Namenda) 5 mg DAILY PO 08/22/16 18:00 08/24/16 08:31 (Depakote Er) 250 mg HS PO 08/23/16 21:00 08/23/16 20:34 (Depakote Er) 500 mg HS PO 08/23/16 21:00 08/23/16 20:40 A/P Problem List: (1) Syncope ICD Code: R55 Status: Acute (2) Parkinsonism ICD Code: G20 Status: Chronic (3) Schizophrenia ICD Code: F20.9 Status: Chronic (4) Seizure disorder ICD Code: G40.909 Status: Acute (5) Hypertension ICD Code: I10 Status: Chronic Assessment and Plan Mr. Marino is a 71-year-old male with a history of schizophrenia, Parkinson's disease, hypertension, seizure disorder who presents to the emergency department from his detention due to a syncopal episode as well as altered mental status. Syncope The pt has a history of Parkinson's disease and seizure disorder. Patient's syncopal episode may be medication related, uses carbidopa/ levodopa. Orthostatic BP negative. Neurology consult appreciated. Keppra level was increased. MRI showed: Stable encephalomalacia involving the frontal lobes bilaterally (right more extensive than left) consistent with old infarcts; Moderate to severe periventricular and subcortical white matter small vessel ischemic changes bilaterally; Scattered old lacunar infarcts within the bilateral basal ganglia and right cerebellar hemisphere; Diffuse cerebral atrophy; No acute infarct, acute hemorrhage, midline shift or extra-axial fluid collections. EEG without obvious seizure activity. Echo from 08/01/2016 --> Normal EF 55-60%. Grossly normal valves. Has episodes of bradycardia and runs of wide complex tachycardia on telemetry which could be underlying cause. - Continue Cogentin, carbidopalevodopa, memantine, trazodone, Depakote. - Monitor for risk for falls. - PT/ OT. - follow up with neurology. - cardiology consult pending. Bradycardia/ Wide complex runs of tachycardia The pt had a recent work-up for syncope and the pt was evaluated by cardiology for sinus bradycardia. The pt currently has episodes of bradycardia and runs of wide complex tachycardia have been noted on telemetry. May be underlying cause of syncope. - unable to add AV marci agents in the setting of bradycardia at this time. - replete potassium and recheck electrolytes. - cardiology consult requested. - EKG and trops pending. Trops on admission were negative. Hypertension/ Hyperlipidemia Blood pressure relatively well controlled. - Continue aspirin, atorvastatin, amlodipine 5 mg, lisinopril 20 mg. BPH - continue finasteride 5 mg by mouth daily. DVT PPx: Lovenox. Discharge Planning Awaiting cardiology eval. Problem Qualifiers (1) Syncope: Qualified Code: R55 - Syncope, unspecified syncope type Todd Mayo DO Aug 24, 2016 09:30
[2016-08-24] MEDS ORDERED: POTASSIUM CHLORIDE 25 MEQ EFFERVESCENT TAB PO ONE (11:00)
[2016-08-24 12:00] VITALS: BP_SYST 128; BP_SYST 131; BP_SYST 133; BP_DIAS 71; BP_DIAS 79; PULSE 79; RESP 18; TEMP 97.7; O2SAT 97
[2016-08-24 12:11] LABS: BICARBONATE 27.7 MEQ/L (21.0-32.0); MAGNESIUM 1.9 MG/DL (1.5-2.5); POTASSIUM 3.6 MEQ/L (3.5-5.1)
[2016-08-24 16:00] VITALS: BP 149/77; PULSE 68; RESP 20; TEMP 98; O2SAT 97
--- NOTE | 2016-08-24 17:13 | MB ---
cc: DANIELLE MACIAS MD DATE OF CONSULTATION: 08/24/2016 CONSULTATIONS Change in mental status, questionable syncope. HISTORY OF PRESENT ILLNESS The patient is a pleasant 71-year gentleman recently seen by Dr. Craven for a similar presentation of change in mental status with periodic low heart rates. He was brought again for virtually the same reasons and his blood pressure was quite low on admission. He was admitted and on telemetry there was concern for arrhythmia. However, I have reviewed the strips and it is merely artifact due to schizophrenia with normal sinus rhythm persisting. There are periods of lower heart rates transiently touching the upper 30s but again these are unlikely related to his actual presentation. PAST MEDICAL HISTORY 1. Traumatic brain injury. 2. Seizure disorder. 3. Hypertension. 4. Schizophrenia. 5. Parkinson's disease. CURRENT MEDICATIONS 1. Depakote. 2. Norvasc 5 mg daily. 3. Aspirin 81 mg daily. 4. Proscar 5 mg daily. 5. Detrol 2 mg daily. 6. Protonix. 7. Lipitor 10 mg q.h.s. 8. Cogentin. 9. Lisinopril 20 mg q.h.s. 10. Seroquel. 11. Carbidopa. 12. Levodopa. 13. Namenda. ALLERGIES SULFA. PHYSICAL EXAMINATION VITAL SIGNS: Afebrile, pulse 79, respiratory rate 18, BP 131/71 (reviewing his blood pressure since admission showed that he was initially hypotensive and has been intermittently hypertensive. GENERAL: A pleasant gentleman in no distress with a Parkinson's tremor on the right side. NECK: No JVD. LUNGS: Clear to auscultation bilaterally. CARDIOVASCULAR: Regular rate and rhythm. No murmurs appreciated. ABDOMEN: Benign. EXTREMITIES: No edema. LABORATORY DATA White count 11.0, hematocrit 39.4, platelets 302. Sodium 143, potassium 3.6, chloride 108, bicarb 27.7, BUN 9, creatinine 0.88, cardiac enzymes are negative x3. Echocardiogram from last month showed a normal ejection fraction. IMAGING Brain MRI from this admission showed encephalomalacia consistent old infarcts. [id number] periventricular subcortical white matter small-vessel/ischemic changes with old lacunar infarcts. Diffuse cerebral atrophy. EKG shows sinus rhythm with no acute ST changes. Telemetry shows sinus rhythm with periodic tremor artifact. ASSESSMENT Change in mental status. The patient had change in mental status with low blood pressures on admission. I do not see any evidence of a clear cardiac etiology of the symptoms. With Parkinson's disease, labile blood pressure is notoriously difficult and I suspect that is what is happening here. Initially he was hypotensive and then he has been intermittently hypertensive, currently he is relatively normotensive. On the whole I think he is better served on less medication even allowing his blood pressures to run high to prevent these episodes of lower blood pressures. Beyond that I think only conservative management is appropriate. I see no indication for a pacemaker and again the concern for arrhythmia was based on artifact and I see only sinus rhythm and sinus bradycardia at this time. My only recommendation would be to decrease the antihypertensives which I will start by stopping his amlodipine. I will be available on an as needed basis and he can followup with Dr. Craven as an outpatient for further medication titration. Thank you again for the opportunity to participate in this patient's care. MD JORDAN Lucas/CATE /2:03 PM /4:35 PM
[2016-08-24 20:00] VITALS: BP 142/82; PULSE 86; RESP 18; TEMP 98.6; O2SAT 96
[2016-08-24] MEDS: QUEtiapine FUMARATE 50 MG EXTENDED RELEASE TABLET PO SCH (20:22)
[2016-08-24] MEDS: ATORVASTATIN 10 MG TAB PO SCH (20:22)
[2016-08-24] MEDS: DIVALPROEX SODIUM E.R. 500 MG TAB PO SCH (20:22)
[2016-08-24] MEDS: DIVALPROEX SODIUM E.R. 250 MG TAB PO SCH (20:22)
[2016-08-24] MEDS: LISINOPRIL 20 MG TAB PO SCH (20:23)
[2016-08-24] MEDS: traZODone HCL 50 MG TAB PO SCH (20:24)
[2016-08-25] VITALS: BP 147/80; PULSE 60; RESP 18; TEMP 98.4; O2SAT 96
[2016-08-25 04:00] VITALS: BP 113/72; PULSE 50; RESP 18; TEMP 97.8; O2SAT 97
[2016-08-25 08:00] VITALS: BP 141/76; PULSE 65; RESP 21; TEMP 97.9; O2SAT 93
[2016-08-25] MEDS: MEMANTINE HCL 5 MG TAB PO SCH (10:15)
[2016-08-25] MEDS: FINASTERIDE 5 MG TAB PO SCH (10:16)
[2016-08-25] MEDS: BENZTROPINE MESYLATE 1 MG TAB PO SCH (10:16)
[2016-08-25] MEDS: TOLTERODINE TARTRATE 2 MG CAP LA PO SCH (10:16)
[2016-08-25] MEDS: ASPIRIN EC 81 MG TABEC PO SCH (10:17)
[2016-08-25] MEDS: PANTOPRAZOLE SOD 20 MG DELAYED RELEASE TAB PO SCH (10:17)
[2016-08-25] MEDS: ENOXAPARIN SODIUM 40 MG/0.4 ML SYRINGE SQ SCH (10:18)
[2016-08-25] MEDS: SODIUM CHLORIDE 0.9% FLUSH 5 ML FLUSH FLUSH SCH (10:18)
[2016-08-25] MEDS: CARBIDOPA/LEVODOPA 25 MG/100 MG TAB PO SCH ×2 (10:24→12:48)
[2016-08-25 11:18] VITALS: PULSE 54
--- NOTE | 2016-08-25 11:18 | HHI.DCPOC ---
Discharge Care Plan Diagnosis: (1) Hypertension (2) Parkinsonism (3) Syncope (4) Seizure disorder (5) Schizophrenia (6) Bradycardia Goals to Promote Your Health * To prevent worsening of your condition and complications * To maintain your health at the optimal level Directions to Meet Your Goals Take your medications as prescribed Follow your dietary instruction Follow activity as directed Keep your appointments as scheduled Take your immunizations and boosters as scheduled If your symptoms worsen call your PCP, if no PCP go to Urgent Care Center or Emergency Room Smoking is Dangerous to Your Health. Avoid second hand smoke Call the 24-hour hour crisis hotline for domestic abuse at Todd Mayo DO Aug 25, 2016 11:18
[2016-08-25] MEDS ORDERED: DIVA250T PO (11:24)
--- NOTE | 2016-08-25 11:29 | HHI.DS ---
Discharge Summary Admission Date Aug 22, 2016 at 00:51 Discharge Date: Aug 25, 2016 Admitting Diagnosis syncope (1) Syncope ICD Code: R55 Diagnosis: Principal (2) Parkinsonism ICD Code: G20 Diagnosis: Principal (3) Schizophrenia ICD Code: F20.9 (4) Seizure disorder ICD Code: G40.909 Diagnosis: Principal (5) Hypertension ICD Code: I10 (6) Bradycardia ICD Code: R00.1 Procedures None. Brief History - From Admission Mr. Marino is a 71-year-old male with a history of schizophrenia, Parkinson's disease, dementia who presented to the emergency department from his care home due to less responsiveness and altered mental status. Patient was found unresponsive at the dinner table last night and EMS was called. On arrival of EMS patient's GCS score was 3. As they transported him over to the stretcher he apparently became increasingly more responsive. He was initially found to have low blood pressure in the 70s. Patient was admitted recently with similar symptoms and had a syncope workup including echocardiogram. At the time of this interview, patient becomes emotional but does not clearly state any particular concerns. He denies chest pain, shortness of breath, dizziness or lightheadedness. During orthostatic blood pressure check patient did not complain of any dizziness or lightheadedness. He denies any changes in bowel or bladder habits. CBC/BMP: 08/21/16 2200 08/24/16 1050 Significant Findings Laboratory Tests Test 08/24/16 08/24/16 10:50 16:43 Chloride Level 108 MEQ/L (98-107) Estimat Glomerular Filtration 86 ML/MIN (>89) Rate Random Glucose 137 MG/DL (74-106) Calcium Level 8.0 MG/DL (8.5-10.1) Troponin I LESS THAN 0.02 LESS THAN 0.02 NG/ML NG/ML (0.02-0.05) (0.02-0.05) Imaging Last Impressions Brain MRI 08/23/16 0000 Signed Impressions: Service Date/Time: Tuesday, August 23, 2016 17:30 - CONCLUSION: 1. Stable encephalomalacia involving the frontal lobes bilaterally (right more extensive than left) consistent with old infarcts. 2. Moderate to severe periventricular and subcortical white matter small vessel ischemic changes bilaterally. 3. Scattered old lacunar infarcts within the bilateral basal ganglia and right cerebellar hemisphere. 4. Diffuse cerebral atrophy. 5. No acute infarct, acute hemorrhage, midline shift or extra-axial fluid collections. 6. Mucus retention cysts within the right maxillary sinus. Clarence Caceres MD Head CT 08/21/162141 Signed Impressions: Service Date/Time: Sunday, August 21, 2016 23:04 - CONCLUSION: No significant change has occurred. Severo Robledo MD Chest X-Ray 08/21/162141 Signed Impressions: Service Date/Time: Sunday, August 21, 2016 19:57 - CONCLUSION: 1. Basilar atelectasis. Elevated right hemidiaphragm. No effusion or pneumothorax. Ranulfo Lei MD PE at Discharge GENERAL: This is a well-nourished, well-developed patient, in no apparent distress, baseline tremor. HEENT: Normocephalic. Pupils equal round and reactive. Nose without bleeding. Airway patent. NECK: Trachea midline. No JVD. Supple. CARDIOVASCULAR: Regular rate and rhythm without murmurs, gallops, or rubs. RESPIRATORY: Clear to auscultation. Breath sounds equal bilaterally. No wheezes , rales, or rhonchi. GASTROINTESTINAL: Abdomen soft, non-tender, nondistended. Bowel Sounds normoactive x4. MUSCULOSKELETAL: Extremities without clubbing, cyanosis or lower extremity edema. NEUROLOGICAL: Awake and alert. Oriented to place and self. MAJOR weakly, stiffness noted. Normal speech. PSYCH: Mood and affect appropriate. Pt update on day of discharge The patient was feeling well and had no acute complaints. He said he slept well. He said he had no pain. He said he had no dizziness or fainting spells. Discussed with nursing. Hospital Course Syncope The pt has a history of Parkinson's disease and seizure disorder. Orthostatic BPs were negative. Neurology was consulted. Depakote level was increased to 750 mg by mouth twice a day. MRI showed: Stable encephalomalacia involving the frontal lobes bilaterally (right more extensive than left) consistent with old infarcts; Moderate to severe periventricular and subcortical white matter small vessel ischemic changes bilaterally; Scattered old lacunar infarcts within the bilateral basal ganglia and right cerebellar hemisphere; Diffuse cerebral atrophy; No acute infarct, acute hemorrhage, midline shift or extra-axial fluid collections. EEG without obvious seizure activity. Echo from 08/01/2016 --> Normal EF 55-60%. Grossly normal valves. He was continued on Cogentin, carbidopalevodopa, and memantine. He worked with physical therapy. He will follow up with neurology as an outpatient. Cardiology was consulted and recommended decreasing blood pressure medications as low blood pressure may be the cause of syncope. Amlodipine was d/c. The pt will follow up with cardiology and his PCP. Bradycardia The pt had a recent work-up for syncope and the pt was evaluated by cardiology for sinus bradycardia. The pt currently has episodes of bradycardia and runs of wide complex tachycardia have been noted on telemetry. Cardiology was consulted and claimed to runs of tachycardia were secondary to artifact from tremor. EKG with normal sinus rhythm. Troponins were negative. The patient will follow up with cardiology as an outpatient. Hypertension Blood pressure relatively well controlled. Amlodipine d/c as above. Pt Condition on Discharge: Stable Discharge Disposition: Discharge to SNF Discharge Time: > 30 minutes Discharge Instructions DIET: Follow Instructions for: Heart Healthy Diet Activities you can perform: Weight Bearing as Dragan Follow up Referrals: Cardiology - 2 Weeks with Panda Craven MD Neurology - 1 Week PCP Follow-up - 1 Week New Medications: Divalproex DR (Divalproex DR) 250 Mg Tabdr 750 MG PO BID Control Seizures #60 Ref 0 TAB Continued Medications: Acetaminophen (Mapap) 325 Mg Tab 650 MG PO Q4HR PRN PAIN Ref [address] (Aspirin EC) 81 Mg Tabdr 81 MG PO DAILY hypertension #30 TAB Atorvastatin (Atorvastatin) 10 Mg Tab 10 MG PO HS Cholesterol Management #30 Ref 0 TAB Benztropine (Benztropine) 0.5 Mg Tab 0.5 MG PO BID PARKINSONS #[address] (Bisacodyl EC) 5 Mg Tabec 10 MG PO DAILY PRN CONSTIPATION Ref 0 TAB Carbidopa-Levodopa (Sinemet) 25-100 Mg Tab 1 TAB PO QID Parkinson Disease Mgmt #90 Ref 0 TAB Finasteride (Proscar) 5 Mg Tab 5 MG PO DAILY Do not crush. Manage Prostate Problems #30 Ref 0 TAB Lisinopril (Lisinopril) 20 Mg Tab 20 MG PO HS #30 Ref 0 TAB Memantine Er (Namenda Xr) 28 Mg Caper 28 MG PO DAILY Alzheimer Disease #30 Ref 0 CAP Omeprazole (Omeprazole) 20 Mg Cap 20 MG PO DAILYAC Oxybutynin ER 24 HR (Oxybutynin ER 24 HR) 5 Mg Tab 5 MG PO DAILY URINARY INCONTINENCE Ref 0 TAB Quetiapine XR (Seroquel XR) 300 Mg Tab 100 MG PO HS #30 Ref 0 TAB Trazodone (Trazodone) 50 Mg Tab 50 MG PO HS Control Depression #30 Ref 0 TAB Discontinued Medications: Amlodipine (Amlodipine) 5 Mg Tab 5 MG PO DAILY HTN #30 Ref 0 TAB Amoxicillin-Clavulanate (Augmentin) 875-125 mg Tab 875 MG PO BID not for use in CrCl <30 ml/min. Infection #6 Ref 0 TAB Divalproex ER (Depakote ER) 500 Mg Lib[place] 500 MG PO HS MOOD DISORDER #30 Ref 0 TAB Divalproex ER (Depakote ER) 250 Mg Libia 250 MG PO HS MOOD DISORDER #30 Ref 0 TAB Todd Mayo DO Aug 25, 2016 11:28
[2016-08-25 12:00] VITALS: BP 133/73; PULSE 64; RESP 20; TEMP 98.2; O2SAT 94
--- NOTE | 2016-08-25 14:28 | EKG ---
Date Performed: 08/24/2016 Time Performed: 11:16:50 PTAGE: 71 years EKG: Sinus rhythm Compared to previous tracing, sinus rate has increased NORMAL ECG PREVIOUS TRACING : 08/22/2016 11.27 DOCTOR: Alex Post Interpretating Date/Time 08/25/2016 14:28:18
== END 2016-08-25 14:30 | DRG 312 ==
LOC: NEPC 21:39 → NEDA 08-22 00:51 → NEDH 08-22 04:59 → N04A 08-22 11:59
PROVIDERS: ADMIT Hospitalist; ATTEND Hospitalist
DX: R55 Syncope and collapse (principal); G20 Parkinson's disease; F03.90 Unspecified dementia, unspecified severity, without behavioral disturbance, psychotic disturbance, mood disturbance, and anxiety; J98.11 Atelectasis; F31.9 Bipolar disorder, unspecified; F20.9 Schizophrenia, unspecified; G40.909 Epilepsy, unspecified, not intractable, without status epilepticus; E78.5 Hyperlipidemia, unspecified; E86.0 Dehydration; I10 Essential (primary) hypertension; J45.909 Unspecified asthma, uncomplicated; N40.0 Benign prostatic hyperplasia without lower urinary tract symptoms; N28.9 Disorder of kidney and ureter, unspecified; G93.89 Other specified disorders of brain
CPT/HCPCS: 70450; 70553; 71010; 80048; 80053; 80164; 81001; 82550; 82552; 83605; 83735; 84100; 84484; 85025; 93005; 95819; A9579; J1650; J7030; P9612

== ENCOUNTER → 2016-11-06 | Outpatient (CLI) | payer MEDICARE, OTHER ==
[~2016-11-06] MED LIST changes: -AMLO5TAB2 PO; -AUGM875T PO; -DEPA500T3 PO; -DIVA250ER PO; +DIVA250T PO
--- NOTE | 2016-11-06 20:08 | EKG ---
Date Performed: 11/06/2016 Time Performed: 10:01:10 PTAGE: 71 years EKG: Sinus rhythm POSSIBLE ANTERIOR MYOCARDIAL INFARCTION , OF INDETERMINATE AGE ABNORMAL ECG PREVIOUS TRACING : 08/24/2016 11.16 Since previous tracing, no significant change noted DOCTOR: Bambi Ramires Interpretating Date/Time 11/06/2016 20:06:59
== END ==
LOC: HCAV 09:38
PROVIDERS: ATTEND Family Medicine
DX: I10 Essential (primary) hypertension (principal)
CPT/HCPCS: 93005